=== PATIENT | female | born 1945 | race Caucasian/White ===

== ENCOUNTER 2020-09-27 13:31 | Outpatient (CLI) | payer MEDICARE, SELFPAY ==
--- NOTE | 2020-09-27 13:40 | XR_ITS ---
WS: [id number] KNEE RIGHT TECHNIQUE: 2 views of the right knee CLINICAL INFORMATION: PAIN IN RIGHT KNEE COMPARISON: None. FINDINGS: Advanced degenerative arthritis right knee with medial compartment narrowing and uikg-vh-pgwy articul ation. Hypertrophic changes along the joint line. Advanced narrowing at the patellofemoral articulati on. XR/XR knee RT 1-2V [id number] IMPRESSION: Advanced degenerative narrowing medial joint compartment and patellofemoral art iculation.
--- NOTE | 2020-09-27 13:40 | XR_ITS ---
WS: [id number] KNEE LEFT TECHNIQUE: 2 views of the left knee CLINICAL INFORMATION: PAIN IN LEFT KNEE COMPARISON: None. FINDINGS: Advanced degenerative arthritis left knee with joint space narrowing worse medial joint compartment. [id number]-fv-[id number] articulation with hypertrophic changes along the joint line. Soft tissue edema. Advanced narrowing at the patellofemoral articulation with hypertrophic patella. XR/XR knee LT 1-2V [id number] IMPRESSION: 1. Advanced degenerative arthritis medial joint compartment with [id number] articulation. 2. Advanced degenerative narrowing at the patellofemoral articulation.
== END 2020-09-27 13:32 | disposition home or self-care (01) ==
LOC: RADWPI 13:38
PROVIDERS: PCP Family Medicine; Visit Provider Nurse Practitioner
DX: M17.12 Unilateral primary osteoarthritis, left knee (principal); M25.561 Pain in right knee
CPT/HCPCS: 73560

== ENCOUNTER → 2020-10-20 15:00 | Outpatient (BNVA) | payer MEDICARE, SELFPAY | PROVIDERS: PCP Nurse Practitioner; Referring Provider Nurse Practitioner; Visit Provider Specialist | DX: M17.0 Bilateral primary osteoarthritis of knee (principal); M25.562 Pain in left knee; M25.561 Pain in right knee | CPT/HCPCS: 73560; 73565 ==

== ENCOUNTER 2020-10-26 14:25 | Outpatient (RCR) | payer MEDICARE, SELFPAY | END 2020-11-24 23:59 | disposition home or self-care (01) | LOC: SPT 14:25 | PROVIDERS: PCP Nurse Practitioner; Referring Provider Specialist; Visit Provider Specialist | DX: M25.562 Pain in left knee (principal); M25.561 Pain in right knee | CPT/HCPCS: 97110; 97161 ==

== ENCOUNTER 2020-11-25 06:00 | Outpatient (RCR) | payer MEDICARE, SELFPAY | END 2020-12-09 15:25 | disposition home or self-care (01) | LOC: SPT 06:00 | PROVIDERS: PCP Nurse Practitioner; Referring Provider Specialist; Visit Provider Specialist | DX: M25.562 Pain in left knee (principal); M25.561 Pain in right knee | CPT/HCPCS: 97110 ==

== ENCOUNTER → 2020-12-15 12:42 | Outpatient (BNVA) | payer MEDICARE, SELFPAY | PROVIDERS: PCP Nurse Practitioner; Visit Provider Specialist | DX: Z01.812 Encounter for preprocedural laboratory examination (principal); Z20.822 Contact with and (suspected) exposure to COVID-19 | CPT/HCPCS: 87635 ==

== ENCOUNTER → 2020-12-30 12:35 | Day surgery (SDC) | payer MEDICARE, SELFPAY | PROVIDERS: PCP Nurse Practitioner; Visit Provider Specialist | DX: Z01.818 Encounter for other preprocedural examination (principal) | CPT/HCPCS: 93005 ==

== ENCOUNTER → 2021-01-06 06:36 | Day surgery (SDC) | payer MEDICARE, SELFPAY | PROVIDERS: PCP Nurse Practitioner; Visit Provider Specialist | DX: Z01.818 Encounter for other preprocedural examination (principal); M17.12 Unilateral primary osteoarthritis, left knee | CPT/HCPCS: 87635 ==

== ENCOUNTER 2021-01-11 10:41 | Observation (INO) | payer MEDICARE, SELFPAY ==
[2020-12-30 10:46] VITALS: BMI 38.0
[2020-12-30 11:19] LABS: Add Urine Microscopic? NO; Charge for UA Resulting for Rev
[2020-12-30 11:29] LABS: Eosinophils # 0.1 10^3/uL (0.0-0.8); Hematocrit 40.4 % (37.0-47.0); Hemoglobin 12.8 g/dL (11.5-15.3); Lymphocytes # 0.8 10^3/uL (0.8-4.8); Lymphocytes % 25.3 %; Mean Corpuscular HGB Conc 31.7 g/dL (30.0-36.0); Mean Corpuscular Hemoglobin 29.8 pg (28.0-34.0); Mean Corpuscular Volume 94.2 fL (81-99); Mean Platelet Volume 12.9 fL (7.4-10.4); Monocytes # 0.3 10^3/uL (0.2-0.9); Monocytes % 10.7 %; Neutrophils # 1.83 10^3/uL (1.8-7.7); Nucleated Red Blood Cells % 0 %; Platelet Count 134 10^3/cmm (130-400); Red Blood Count 4.29 10^6/uL (4.1-5.3); Red Cell Distribution Width 13.6 % (12.1-15.1)
[2020-12-30 11:34] LABS: Alanine Aminotransferase 9 U/L (0-33); Alkaline Phosphatase 86 IU/L (35-105); Anion Gap 13.2 (5-19); Aspartate Amino Transferase 21 U/L (0-32); Blood Urea Nitrogen 13 mg/dL (8-23); Calcium 8.9 mg/dL (8.5-10.5); Carbon Dioxide 26 mmol/L (22-29); Chloride 107 mmol/L (98-107); Globulin 2.8 g/dL (1.3-4.6); Glucose 88 mg/dL (65-115); Osmolality Calculated 294 mOsm/kg (285-295); Potassium 4.2 mmol/L (3.5-5.1); Sodium 142 mmol/L (136-145); Total Bilirubin 0.5 mg/dL (0.15-1.2); Total Protein 6.8 g/dL (6.6-8.7)
[2020-12-30 11:39] LABS: Bilirubin Urine Neg (Negative); Blood Urine Neg (Negative); Glucose Urine UA Norm (Normal); Ketones Urine Negative (Negative); Leukocyte Esterase Urine Negative (Negative); Nitrate Urine Negative (Negative); Protein Urine Neg (Negative); Urine Appearance Clear (CLEAR); Urine Color Yellow (Yellow); Urobilinogen Urine Norm (Negative); pH Urine 5 (5-7)
--- NOTE | 2020-12-30 12:35 | ECG_ITS ---
[facility] Test Date: 2020-12-30 Pat Name: Terri Carter Department: Room: Gender: Female Unit Secretary: : 1945 Requested By: Cholo Bill Order Number: [id number] Edith MD: Osman Starks M.D. Measurements Intervals [place] Rate: 69 P: 46 NH: 164 QRS: 15 QRSD: 91 T: 37 QT: 414 QTc: 446 Interpretive Statements SINUS RHYTHM No previous ECG available for comparison Electronically Signed On 12-30-2020 20:52:29 CDT by Osman Starks M.D. [id number]
--- NOTE | 2020-12-30 13:06 | ANES.PREANE2 ---
Pre-Anesthetic Assessment Pre-Anesthetic Assessment: Height/Weight: Height 1.52 m Weight 88.178 kg Proposed Procedure: Operation Date: 01/11/21 11:50 Proposed Procedures p Total Knee Arthroplasty 08495 M17.11(Left) - Gilda Monroe MD Was Beta Tommy taken within 24 hours: N/A Was Clonidine taken within 24 hours: N/A Social: Social History: No alcohol and No tobacco Exam: Pre-Anes Outpt Exam: alert, oriented x 3, clear to auscultation bilaterally and regular rate & rhythm Airway: Submandibular: WNL Cervical ROM: WNL MP: 2 Dentition: False GI: GI: GERD Metabolic: Metabolic: Morbid obesity Musc/skel: Musc/skel: OA/DJD Anesthetic Plan: ASA status: 3 Anesthesia: Regional (specify below) (SAB/adductor canal blk) PFSH Anesthesia PFSH: Social History Smoking and tobacco status: never smoked Alcohol intake: never Data Anesthesia CBC & Chem 7: 12/30/20 11:05 12/30/20 11:05 Other Labs: Laboratory Results - last 48 hr 12/30/20 12/30/20 12/30/20 11:05 11:05 11:10 WBC 3.0 L RBC 4.29 Hgb 12.8 Hct 40.4 MCV 94.2 MCH 29.8 MCHC 31.7 RDW 13.6 Plt Count 134 MPV 12.9 H Neut % (Auto) 61.0 Lymph % (Auto) 25.3 [place] % (Auto) 10.7 Eos % (Auto) 2.0 Baso % (Auto) 1.0 Neut # (Auto) 1.83 Lymph # (Auto) 0.8 [place] # (Auto) 0.3 Eos # (Auto) 0.1 Baso # (Auto) 0.0 Nucleated RBC % (auto) 0 Nucleated RBCs # 0.0 Sodium 142 Potassium 4.2 Chloride 107 Carbon Dioxide 26 Anion Gap 13.2 BUN 13 Creatinine 0.6 GFR Calculation Not Reportable Glucose 88 Calculated Osmolality 294 Calcium 8.9 Total Bilirubin 0.5 AST 21 ALT 9 Alkaline Phosphatase 86 Total Protein 6.8 Albumin 4.0 Globulin 2.8 Urine Color Yellow Urine Appearance Clear Urine pH 5 Ur Specific [place] 1.020 Urine Protein Neg Urine Glucose (UA) Norm Urine Ketones Negative Urine Blood Neg Urine Nitrate Negative Urine Bilirubin Neg Urine Urobilinogen Norm Ur Leukocyte Esterase Negative Cardiac Studies: No Data to Display
[2021-01-11] VITALS (19 sets, daily range): BP systolic 119–178; BP diastolic 71–100; PULSE 60–92; RESP 14–18; TEMP 36–37.1; O2SAT 90–97
--- NOTE | 2021-01-11 07:41 | P.ANESUD_ITS ---
Pre-Anesthetic Update Pre-Anesthetic Assessment: Date of Surgery/Procedure: 01/11/21 Preop Allyson gnosis: Left knee DJD Proposed Procedure: Operation Date: 01/11/21 08:30 Proposed Procedures p Total Knee Arthroplasty 93239 M17.11(Left) - Gilda Monroe MD Any changes to Pre-Anesthetic Assessment?: No Last Intake: L>8h Last Intake: 00:00 Vitals: Temperature 98.8 F 01/11/21 07:24 Temperature Source Temporal Artery S can 01/11/21 07:24 Pulse Rate 90 01/11/21 07:24 Pulse Rhythm 01/11/21 07:28 Pulse Strength 3+ Normal 01/11/21 07:28 Respiratory Rate 18 01/11/21 07:24 Blood Pressure 178/76 01/11/21 07:24 Blood Pressure Argelia n 110 01/11/21 07:24 Pulse Oximetry 97 01/11/21 07:24 Oxygen Delivery Me thod 01/11/21 07:28 Exam: Pre-Anes Outpt Exam: alert, oriented x 3, clear to auscultation bilaterally and regular rate & rhythm Cardiac Studies: No Data to Display
--- NOTE | 2021-01-11 07:44 | P.HPUD_ITS ---
Surgery/Procedure H&P Update DATE OF PROCEDURE: January 11, 2021 DATE H&P PERFORMED: 12/13/20 H&P UPDATE INFORMATION: I have reviewed H&P completed within last 30 days, I have examined patient prior to procedure, No changes to prior documentation and H&P is in [facility] EMR on date indicated CHANGES TO PREVIOUS DOCUMENTATION: New med - Cetirizine for allergies PREOP DIAGNOSIS: Left knee DJD PLANNED PROCEDURE: Operation Date: 01/11/21 08:30 Proposed Procedures p Total Knee Arthroplasty 96279 M17.11(Left) - Gilda Monroe MD Related Problem List Diagnoses (1) Osteoarthritis of left knee: Qualifiers: Osteoarthritis type: primary Qualified Code(s): M17.12 - Unilateral primary osteoarthritis, left knee
[2021-01-11] MEDS: sodium chloride 0.9% 1,000 ML 30 ML IV (08:00)
[2021-01-11] MEDS: CELEcoxib 200 mg Capsule 400 MG PO (08:01)
[2021-01-11] MEDS: acetaminophen 1,000 MG/100 ML PIGGYBACK 400 MG IV ×3 (08:03→23:47)
--- NOTE | 2021-01-11 08:44 | ANES.PROC ---
Anesthesia Procedures Procedure/Date: 01/11/21 Nerve Block ^: Nerve Block 1: Main Anesthesia: spinal anesthesia block Time Out Performed: Yes Consent: requested by attending/covering physician, risks and benefits reviewed and patient agrees to proceed Nerve block location: adductor canal (Under continuous Ultrasound Guidance ) Anesthesia monitors applied: pulse oximetry, EKG, BP cuff and oxygen Nerve block position: supine Anesthetic Used: ropivicaine 0.5% Amount of anesthesia used (mL): 20 Ultrasound used to: recognize landmarks and visualize and ID femerol nerve Nerve Stimulator Used?: No Interscalene/Femoral BLK: 4 stimuplex 21 g needle used for position and inplane approach Injection: neg aspiration of heme Patient Tolerated Procedure: well and no complications Complications: none
[2021-01-11] MEDS: ceFAZolin 1,000 mg SDV 1000 MG IRRIGATION ×2 (09:20)
[2021-01-11] MEDS: vancomycin 1,000 MG SDV 1000 MG XX (10:11)
--- NOTE | 2021-01-11 11:07 | SUR.PHASEI ---
1104 PATIENT TO PACU FROM OR. RR EVEN AND UNLABORED, TALKING WHEN ENTERING PACU. DRESSING TO LEFT KNEE, CDI.
--- NOTE | 2021-01-11 11:13 | XRR_ITS ---
PROCEDURE INFORMATION: Exam: XR Left Knee Exam date and time: 01/11/2021 11:34 AM Age: 75 years old Clinical indication: Device placement; Joint replacement hardware; Prior surgery; Surgery date: Post-operative (0-2 days); Additional info: Status post left total knee arthroplasty TECHNIQUE: Imaging protocol: XR Left knee. Views: 3 views. COMPARISON: CR XR knees AP WB w BI lmt ORTH 10/20/2020 3:07 PM FINDINGS: Bones/joints: Interval left total knee arthroplasty. No periprosthetic lucency. No fracture. No dislocation. Soft tissues: Postoperative soft tissue changes present. XR/XR knee LT 3V* [id number] IMPRESSION: Postoperative changes.
--- NOTE | 2021-01-11 11:16 | P.OP_ITS ---
Operative Report Date of procedure: January 11, 2021 Pre-op Diagnosis: Primary osteoarthritis left knee with flexion contracture Post-op diagnosis: same Post-op Findings: Multiple osteophytes, flexion significant osteoarthritic change. Procedure Done: Left total knee arthroplasty Implants: The Ai total knee system with a size 4 triathlon beaded posterior stabilized femur left, a triathlon titanium tibial component size 3 beaded, a triathlon X3 posterior stabilized tibial bearing insert size 3 X 9 mm and a beaded triathlon titanium asymmetric patella size 32 x 10 mm Specimens removed/disposition: Bone, disposed of Pathology: none sent Surgeon: Gilda Monroe [employer] Research Analyst: [facility] operating room technicians Anesthesia: MAC (With spinal anesthetic) Estimated blood loss (mL): 20 Tourniquet time (min): 96 Tourniquet time: At 250 mmHg IV fluids (mL): 1,000 Urine output (mL): 200 Complications: None Findings: Severe degenerative osteoarthritis with large osteophytes, flexion contracture, and near complete obliteration of cartilage. Condition: stable Disposition: PACU Brief History: This 75-year-old woman presented to the office with severe left knee pain which was incapacitating. She was unable to ambulate or perform reasonable activities of daily living. She had significant concerns of the knee giving way. None of these activities were able to be accomplished comfortably. She was unresponsive to conservative measures and wished to proceed with left total knee arthroplasty risks and complications were discussed. Consents were signed preoperatively, and questions were answered. The patient wished to proceed. Procedure: The patient was brought to the operating theater, and after undergoing adequate spinal anesthetic with MAC, ASA 3, the left lower extremity was prepped with Dura-Prep and draped in usual fashion following placement of a tourniquet high on the leg. The leg was then draped free. Following prepping and draping, the leg was exsanguinated, and the tourniquet was elevated to 250 mmHg for a total tourniquet time of 96 minutes. Prior to elevation of the tourniquet, but following exposure of the site of surgery, a surgical pause was performed. At the time of the surgical pause, we confirmed the site and side of surgery. Additionally, we confirmed the appropriate and timely administration of preoperative antibiotics, Ancef 2 g. and Transexemic acid 1 g. The availability of equipment was confirmed, and the patient's identity was verbalized as well. Following the surgical pause, an incision was made centering over the patella continuing proximally and distally as necessary to allow access to the knee joint. Dissection continued through skin and soft tissues using a scalpel. Hemostasis was obtained using electrocautery. The skin incision was followed by a median parapatellar arthrotomy. The leg was extended and the patella was everted. Following this, the leg was returned to flexed position. The distal femur was exposed and a drill hole was made in this for placement of the distal femoral jig. The distal femoral jig was set at 5? of valgus. The distal femoral cutting block was then placed in appropriate position, and an jessie wing was used to confirm an appropriate amount of distal femur would be resected. The distal femoral resection was accomplished with 10 mm of bone being resected distally secondary to the preoperative flexion contracture. After the distal femoral resection had been accomplished, the femur was measured and it measured a size 4. Medial lateral dimension also measured a size 4. A size 4 femoral cutting block was placed in position, and we were then able to accomplish the anterior, posterior and chamfer cuts. This jig was then removed and the notch guide was placed in position. With the notch guide in appropriate position, the notch was excised including resection of the anterior and posterior cruciate ligaments. This notch was to allow for the posterior stabilized femoral component. At this point, the femur was prepared and attention was directed to the proximal tibia. The posterior knee retractor was placed along with medial and lateral retractors. Further resection of the menisci was accomplished as we had better visualization. A complete meniscectomy was performed both medially and laterally with care being taken to protect the popliteus. Retractors were then placed so that the proximal tibia was well visualized. A drill hole was then made in the tibia for placement of the intramedullary guide. This guide was placed so that approximately 2 mm of bone would be resected from the deficient medial tibial plateau. The intramedullary guide was utilized supplemented with an extramedullary guide to assure appropriate alignment for the proximal tibial resection. The proximal tibial jig was then evaluated, pinned in position, and the proximal tibial resection was accomplished without difficulty. The jig was removed, and the proximal tibia was measured. It measured a size 3. A medial release was accomplished. Osteophytes were also removed from the tibia posteriorly and medially. Additionally, posterior femoral condyle osteophytes were removed as well. Trial was accomplished with a size 3 x 9 mm insert. The femoral component was placed in position for the trial reduction, and the knee was placed through range of motion. With this, there was excellent stability with excellent varus-valgus alignment with appropriate patellar tracking. Extension was noted to be full as well. This was felt to be the appropriate size insert. There was full extension and flexion without lift off and the rotation of the tibia was marked. Alignment was checked from the hip to the ankle, and this was noted to be appropriate as well. Attention was then directed to the patella. The patella was measured with a caliper. We resected sufficient patella to leave approximately 14 mm of patella remaining. Measurements of the patella then indicated that a size asymmetric 32 mm x 10 mm was the appropriate patellar size. We then placed the jig to drill for the 3 pegs of the press-fit patella, and these drill holes were made without incident. A trial patella was then placed, and the knee was placed through range of motion. The patella was noted to track nicely without evidence of subluxation. The femur was prepared for a press-fit femur by drilling 2 holes for the femoral pegs. All trial components were subsequently removed. The tibial tray was then pinned into position, and we broached the tibia for the stem of the tibial component. Subsequently, 4 drill holes were made for placement of the press-fit tibia. This was accomplished without difficulty. Care was taken to assure appropriate rotation of the tibia as well as appropriate position on the proximal tibia. The tibial tray was completely seated on the proximal tibia. Following broaching, the tibial guide was removed, and all surfaces were copiously irrigated. The surfaces were then dried and a bone plug was placed into the distal femur. Exparel was also injected at this point. The Tritanium tibia was impacted into position. The beaded femur was then impacted into position in a cementless fashion. The tibial insert was placed. The patella was pressed into position with a patellar clamp. The knee was irrigated with 500 mL of normal saline. The knee was then copiously irrigated and suctioned dry. Attention was then directed to closure. Closure was accomplished with 0 Vicryl in the fascial tissues. Following this, a 2-0 Monocryl was used in the subcutaneous tissues, and the skin was closed with skin ute. A sterile dressing was then placed consisting of Dermabond Prineo, telfa, 4x4's, ABD, sterile soft roll, and an Carroll wrap. The patient was returned the Recovery Room in a satisfactory condition. X-rays were obtained there. The patient will be discharged to the floor for postoperative rehabilitation and pain management. Associated Problem List Diagnoses (1) Osteoarthritis of left knee: Qualifiers: Osteoarthritis type: primary Qualified Code(s): M17.12 - Unilateral primary osteoarthritis, left knee
--- NOTE | 2021-01-11 11:56 | SUR.PHASEI ---
1132 PATIENT TO MED SURG. DRESSING TO LEFT KNEE, CDI WITH FIRST ICE IN PLACE. WALL CATH DRAINING CLEAR, YELLOW URINE. PATIENT STABLE FOR TRANSPORT.
[2021-01-11] MEDS: chlorhexidine gluconate 0.12% Btl 473 mL 30 ML MUCOUS MEM ×3 (12:08→20:59)
[2021-01-11] MEDS: oxyCODONE 5 mg IR Tab/Cap PO ×2 (12:08→18:16)
--- NOTE | 2021-01-11 14:51 | ANE.PACU2 ---
Inpatient post-anesthesia follow up: Airway intact: Yes Vital signs: Temperature 97.0 F Pulse Rate 60 Respiratory Rate 17 Blood Pressure 129/75 Pulse Oximetry 90 Oxygen Delivery Me thod Room Air Oxygen Flow Rate Fraction of Inspir ed Oxygen Hydration adequate: Yes Nausea and vomiting: No Pain level: 1 Mental status: Baseline
[2021-01-11] MEDS: mupirocin oint 22 gm 1 APPLIC NASAL (17:20)
[2021-01-11] MEDS: calcium carbonate 500 mg Chew Tablet 1000 MG PO (17:20)
[2021-01-11] MEDS: venlafaxine 75 mg Tablet 37.5 MG PO (17:20)
[2021-01-11] MEDS: sennosides-docusate Tablet 2 TAB PO (17:21)
[2021-01-11] MEDS: iron polysaccharide complex 150 mg Capsule PO (17:21)
[2021-01-11] MEDS: CELEcoxib 200 mg Capsule PO (20:58)
[2021-01-12] VITALS (7 sets, daily range): BP systolic 114–135; BP diastolic 63–73; PULSE 75–118; RESP 16–20; TEMP 36.6–37.2; O2SAT 93–94
[2021-01-12] MEDS: oxyCODONE 5 mg IR Tab/Cap PO ×2 (04:23→12:26)
[2021-01-12 06:06] LABS: Basophils % 0.2 %; Eosinophils % 0.2 %; Hematocrit 34.2 % (37.0-47.0); Hemoglobin 10.9 g/dL (11.5-15.3); Lymphocytes # 0.7 10^3/uL (0.8-4.8); Lymphocytes % 11.8 %; Mean Corpuscular HGB Conc 31.9 g/dL (30.0-36.0); Mean Corpuscular Hemoglobin 29.7 pg (28.0-34.0); Mean Corpuscular Volume 93.2 fL (81-99); Mean Platelet Volume 13.7 fL (7.4-10.4); Monocytes # 0.6 10^3/uL (0.2-0.9); Monocytes % 11.4 %; Neutrophils # 4.21 10^3/uL (1.8-7.7); Neutrophils % 76.2 %; Nucleated Red Blood Cells % 0 %; Platelet Count 91 10^3/cmm (130-400); Red Blood Count 3.67 10^6/uL (4.1-5.3); Red Cell Distribution Width 13.2 % (12.1-15.1); White Blood Count 5.5 10^3/uL (4.0-10.0)
[2021-01-12 06:35] LABS: Anion Gap 10.9 (5-19); Blood Urea Nitrogen 17 mg/dL (8-23); Calcium 8.1 mg/dL (8.5-10.5); Carbon Dioxide 26 mmol/L (22-29); Chloride 107 mmol/L (98-107); Glucose 122 mg/dL (65-115); Osmolality Calculated 293 mOsm/kg (285-295); Potassium 3.9 mmol/L (3.5-5.1); Sodium 140 mmol/L (136-145)
[2021-01-12] MEDS: acetaminophen 1,000 MG/100 ML PIGGYBACK 400 MG IV (07:30)
[2021-01-12] MEDS: mupirocin oint 22 gm 1 APPLIC NASAL ×2 (08:58→17:15)
[2021-01-12] MEDS: sennosides-docusate Tablet 2 TAB PO ×2 (08:59→17:16)
[2021-01-12] MEDS: atorvastatin 40 mg Tablet 20 MG PO (08:59)
[2021-01-12] MEDS: pantoprazole DR 40 mg Tablet PO (08:59)
[2021-01-12] MEDS: multivitamin therapeutic Tablet 1 TAB PO (08:59)
[2021-01-12] MEDS: CELEcoxib 200 mg Capsule PO ×2 (08:59→19:37)
[2021-01-12] MEDS: cholecalciferol (vitamin D3) 1,000 unit Tablet 1000 UNIT PO (08:59)
[2021-01-12] MEDS: calcium carbonate 500 mg Chew Tablet 1000 MG PO ×2 (08:59→17:15)
[2021-01-12] MEDS: iron polysaccharide complex 150 mg Capsule PO ×2 (09:00→17:16)
[2021-01-12] MEDS: aspirin 325 mg EC Tablet PO (09:00)
[2021-01-12] MEDS: venlafaxine 75 mg Tablet 37.5 MG PO ×2 (09:01→17:20)
[2021-01-12] MEDS: chlorhexidine gluconate 0.12% Btl 473 mL 30 ML MUCOUS MEM ×4 (09:01→20:40)
--- NOTE | 2021-01-12 11:02 | PC.CHAP ---
Pastoral Care Encounter/Spiritual Assessment Type of Contact [] Declined chute boss visit [] Patient/Family/Request visit [] Outpatient visit [] Follow-up visit [] Physician referral [] Code/Alert [X] Routine visit [] Staff referral [] Actively dying [] Patient sleeping [] Family support [] [] Out of room [] Palliative care [] [] Receiving care in room [] Pre-surgical visit [] Trauma [] Long length of stay [] ICU visit [] Other: Relational/Emotional Strength [X] Patient feels connected with others/family/visitors/staff [] Distress [] Loneliness/isolation [] Abandonment Spirituality of Patient [X] Person of [place] [X] Attends Moravian of their [place] [] Believes in Prayer [] Reads Bible or Denominational materials [] There are Spiritual issues to be addressed Automotive Sales Executive Interventions [X] Prayer [X] Active listening [] Non-anxious presence [] Spiritual/emotional support [] Crisis/trauma care [] Spiritual counseling [] Bereavement support [] Provided bereavement packet [] Provided Bible/devotional materials [] Provided toy/stuffed animal, coloring book to patient or family member [] Provided Communion [] Anointing/[place] [] Salvation [X] Completed spiritual assessment [] Other: Impact on Illness or Injury [] Angry [] Fearful [] Anxious [] Often cries [] Exhaustion [] Unable to work [] Unable to attend zoroastrian [] Unable to walk/stand [] Unable to read [] Unable to drive [] Unable to eat/drink [] Unable to sleep [] Unable to be with family [] Patient intubated [] Other: Summary Time spent with patient 10 MIN
--- NOTE | 2021-01-12 16:40 | P.PN_ITS ---
Subjective Subjective: Interval history: The patient is seen in her room. She had episodes of orthostatic hypotension when attempting physical therapy this morning. Notes are reviewed, and both OT and PT feel that she would benefit from a short stay at a rehab facility. The patient is also very anxious and feels unsafe to go home. She does live alone. A peer to peer was done today with the insurance company, and it has been agreed that she would benefit from a short stay at rehabilitation. Her stay will be reviewed by them as appropriate. The patient is comforted by this, and we are still hoping that she may perhaps be able to be transferred today. Medications: Reviewed: Yes Vitals/I&O/Wt Last Vital Signs Temp 97.8 F 01/12/21 11:56 Pulse 118 H 01/12/21 11:56 Resp 18 01/12/21 12:26 BP 114/73 01/12/21 11:56 Pulse Ox 93 01/12/21 11:56 01/12/21 01/12/21 01/12/21 06:59 14:59 22:59 Intake Total 150 / 1740 450 / 450 Output Total 300 / 1070 Balance -150 / 670 450 / 450 Physical Exam Const: COMMON NORMALS: no acute distress, patient oriented x3 and alert EX AM LIMITATIONS: physical limitations (Endurance is limited.) GENERAL APPE ARANCE: cooperative and comfortable NUTRITIONAL APPEARANCE: obese ORIENTATION/CONSCIOUSNESS: Yes awake and Yes oriented to person HENMT: COMMON NORMALS: normocephalic and atraumatic HEAD & SCALP: normoceph alic and atraumatic Eye: GENERAL EYE: appearance normal, both eyes and all related structures Chest: COMMONS NORMALS: normal inspection of the chest Resp: COMMON NORMALS: normal respiratory effort EFFORT & INSPECTION: Yes able to speak in complete sentences and Yes symmetric chest movement Extremity: LEFT LOWER EXTREMITY: Yes knee joint (Dressing is removed, wound is benign.) Left knee: Yes inspection (There is minimal swelling.), Yes palpation (Minimal tenderness to palpation.) and Yes neurovascular exam (Intact distally.) Neuro: COMMON NORMALS: patient oriented x3 SENSORIUM/ORIENTATION: Yes alert and Yes oriented to person Psych: COMMON NORMALS: mental status grossly normal APPEARANCE: Yes grossly normal ATTITUDE: Yes calm and Yes engaged ATTENTION/CONCENTRATION: Yes attention grossly intact Skin: COMMON NORMALS: no rashes or lesions noted GENERAL SKIN EXAM: no rashes or lesions noted Urinary Catheter Management^: Messer: Cath Placed During This Visit: yes, but has since been removed by the nurse Reason for Continuing Indwelling Catheter: Decision to DC Catheter Urinary Catheter Date of Insertion: 01/11/21 Urinary Catheter Time of Insertion: 08:40 Date Urinary Catheter Removed: 01/12/21 Time Urinary Catheter Discontinued: 06:32 Data : 01/12/21 05:20 01/12/21 05:20 A&P Assessment and plan (1) History of total knee arthroplasty: Patient is in her first postoperative day following total knee arthroplasty which was performed yesterday. Patient had orthostatic hypotension this morning when physical therapy attempted to work with her. She did better this afternoon, but she is still requiring verbal cues and assistance with her ambulation and activities. Her dressings were removed. Her wound is benign. There is no evidence of infection. She is alert and awake and in good spirits. She does not feel safe to be discharged to home, and physical therapy and Occupational Therapy both agree that she is not safe for discharge to home. We have worked with her insurance company to get approval to have her go to custodial, and we will plan for this. Status: Acute Qualifiers: Laterality: left Qualified Code(s): Z96.652 - Presence of left artificial knee joint (2) Osteoarthritis of left knee: Status: Acute Qualifiers: Osteoarthritis type: primary Qualified Code(s): M17.12 - Unilateral primary osteoarthritis, left knee Attestations Medical Necessity Statement*: Patient requires ongoing hospitalization while awaiting custodial as she is not safe for discharge to home. This has been approved, and we are waiting transfer to custodial. Coding Level of Care Code Acute Maintenance And Repair Worker for Dominique Alvarado Diagnoses History of total knee arthroplasty Z96.652 Laterality: left Osteoarthritis of left knee M17.12 Osteoarthritis type: primary
[2021-01-12] MEDS: acetaminophen 500 mg Tablet 1000 MG PO ×2 (17:16→23:51)
[2021-01-13] VITALS (8 sets, daily range): BP systolic 107–122; BP diastolic 59–72; PULSE 78–95; RESP 16–20; TEMP 36.6–37.2; O2SAT 90–95
[2021-01-13] MEDS: oxyCODONE 5 mg IR Tab/Cap PO ×3 (04:37→13:42)
[2021-01-13] MEDS: venlafaxine 75 mg Tablet 37.5 MG PO (09:25)
[2021-01-13] MEDS: acetaminophen 500 mg Tablet 1000 MG PO (09:26)
[2021-01-13] MEDS: calcium carbonate 500 mg Chew Tablet 1000 MG PO (09:26)
[2021-01-13] MEDS: cholecalciferol (vitamin D3) 1,000 unit Tablet 1000 UNIT PO (09:26)
[2021-01-13] MEDS: sennosides-docusate Tablet 2 TAB PO (09:26)
[2021-01-13] MEDS: multivitamin therapeutic Tablet 1 TAB PO (09:27)
[2021-01-13] MEDS: pantoprazole DR 40 mg Tablet PO (09:27)
[2021-01-13] MEDS: CELEcoxib 200 mg Capsule PO (09:27)
[2021-01-13] MEDS: atorvastatin 40 mg Tablet 20 MG PO (09:27)
[2021-01-13] MEDS: aspirin 325 mg EC Tablet PO (09:27)
[2021-01-13] MEDS: iron polysaccharide complex 150 mg Capsule PO (09:28)
[2021-01-13] MEDS: mupirocin oint 22 gm 1 APPLIC NASAL (09:35)
[2021-01-13] MEDS: chlorhexidine gluconate 0.12% Btl 473 mL 30 ML MUCOUS MEM ×2 (09:36→13:46)
--- NOTE | 2021-01-13 10:22 | P.DS_ITS ---
Discharge Providers Date of Admission: 01/11/21 10:41 Date of Discharge: January 13, 2021 Attending Provider at Admission: Gilda Monroe MD Attending Provider at Discharge: Gilda Monroe MD Primary Care Provider: Lily Townsend APN Diagnoses at Discharge Discharge Diagnosis (1) History of total knee arthroplasty: Status: Acute Qualifiers: Laterality: left Qualified Code(s): Z96.652 - Presence of left artificial knee joint (2) Osteoarthritis of left knee: Status: Acute Permanent problem details: Left total knee arthroplasty. Implants: The [place] total knee system with a size 4 triathlon beaded posterior stabilized femur left, a triathlon titanium tibial component size 3 beaded, a triathlon X3 posterior stabilized tibial bearing insert size 3 X 9 mm and a beaded triathlon titanium asymmetric patella size 32 x 10 mm Qualifiers: Osteoarthritis type: primary Qualified Code(s): M17.12 - Unilateral primary osteoarthritis, left knee Reason for Visit Reason for Visit: Primary osteoarthritis left knee Hospital Course Hospital Course Patient presented to the hospital on January 11, 2021 for left total knee arthroplasty. She had significant degenerative osteoarthritis and underwent an uneventful left total knee arthroplasty. On the first postoperative day yesterday, she had hypotension and her first physical therapy treatment session. The second afternoon session was better, however, the patient was noted to need significant assistance with her normal activities of daily living. After evaluation with OT and PT, it was felt that group home would be a better option for her and that she was likely unsafe to be discharged to home. She does live alone. The patient therefore remained another night in the hospital. We did obtain approval through [id number] evaluation from her insurance company for her transfer to group home. She is therefore, on the second postoperative day, ready for transfer to group home. She does note that once she is ready for discharge from group home, she will have the assistance of her grandchildren potentially. She does note that she still has decreased endurance and lack of competence, and she is in agreement to proceeding with discharge to group home. Her wound is benign. There is no drainage. Her calf is soft and nontender. She is neurologically intact. Physical Exam Const: COMMON NORMALS: no acute distress, patient oriented x3 and alert EXAM LIMITATIONS: physical limitations (Endurance is limited.) GENERAL APPEARANCE: cooperative and comfortable NUTRITIONAL APPEARANCE: obese ORIENTATION/CONSCIOUSNESS: Yes awake and Yes oriented to person HENMT: COMMON NORMALS: normocephalic and atraumatic HEAD & SCALP: normocephalic and atraumatic Eye: GENERAL EYE: appearance normal, both eyes and all related structures Chest: COMMONS NORMALS: normal inspection of the chest Resp: COMMON NORMALS: normal respiratory effort EFFORT & INSPECTION: Yes able to speak in complete sentences and Yes symmetric chest movement Extremity: LEFT LOWER EXTREMITY: Yes knee joint (Minimal to no swelling.) Left knee: Yes inspection (No drainage or ecchymosis.), Yes palpation (No tenderness over the calf.) and Yes neurovascular exam (Intact distally.) Neuro: COMMON NORMALS: patient oriented x3 SENSORIUM/ORIENTATION: Yes alert and Yes oriented to person Psych: COMMON NORMALS: mental status grossly normal APPEARANCE: Yes grossly normal ATTITUDE: Yes calm and Yes engaged ATTENTION/CONCENTRATION: Yes attention grossly intact Skin: COMMON NORMALS: no rashes or lesions noted GENERAL SKIN EXAM: no rashes or lesions noted Urinary Catheter Management^: Messer: Cath Placed During This Visit: yes, but has since been removed by the nurse Reason for Continuing Indwelling Catheter: Decision to DC Catheter Urinary Catheter Date of Insertion: 01/11/21 Urinary Catheter Time of Insertion: 08:40 Date Urinary Catheter Removed: 01/12/21 Time Urinary Catheter Discontinued: 06:32 Discharge Data Data Completed and Pending: Completed Studies During Hospitalization Category Date Time Status XR knee LT 3V* [id number] Urgent Exams 01/11/21 11:13 Completed Vitals: Last Vital Signs Temp 98.6 F 01/13/21 08:00 Pulse 95 01/13/21 08:00 Resp 18 01/13/21 09:33 BP 121/69 01/13/21 08:00 Pulse Ox 90 01/13/21 08:00 Discharge Plan Discharge Patient Disposition: Home Health Service Condition: Stable Prescriptions: New celecoxib 200 mg Capsule 200 mg PO DAILY Qty: 30 RF: 0 aspirin 325 mg Tablet,Delayed Release (Dr/Ec) 325 mg PO DAILY Qty: 0 RF: 0 oxycodone 5 mg Tablet 5 mg PO Q4H PRN (Reason: Moderate Pain) Qty: 30 RF: 0 Continued omeprazole 20 mg capsule,delayed release(DR/EC) 20 mg PO DAILY RF: 0 venlafaxine 37.5 mg tablet 37.5 mg PO BID RF: 0 atorvastatin 10 mg tablet 10 mg PO DAILY RF: 0 cetirizine 10 mg tablet 10 mg PO PRN PRN (Reason: Allergy Symptoms) RF: 0 Discharge Orders: Discharge Order (Routine); Ordered 01/12/21 Ordered By: Gilda Monroe Other Ambulatory Orders: DME: Walker (Order) Location: None Selected Ordered By: Gilda Monroe Referrals: Gilda Monroe MD [Physician] - 01/26/21 11:45 am Discharge Diet: Advance as tolerated and Usual diet Discharge Activity: Increase activity as tolerated, Limit activity as instructed, Use walker/crutches as instructed and As per PT/OT instructions Patient Instructions: Aspirin (By mouth), Oxycodone, Rapid Release (By mouth), Celecoxib (By mouth), Total Knee Replacement (DC), Osteoarthritis (DC), Opioid Safety Activity Restrictions/Additional Instructions: Weightbearing as tolerated. Range of motion, weightbearing, and gait training per physical therapy. Discharge Attestations Time Spent in Discharge Care*: greater than 30 min Specific Discharge Activities: educating patient, discussing with pcp/other providers, discussing with case operator/social workers/dc planners, documenting/other paperwork and evaluating patient/reviewing data Other discharge activites (optional): Peer to peer Quality Metrics Clinical Quality Measures During this hospital stay, did patient experience: None Coding Level of Care Code Acute Chg FW DC note Exam Comprehensive Diagnoses History of total knee arthroplasty Z96.652 Laterality: left Osteoarthritis of left knee M17.12 Osteoarthritis type: primary
[2021-01-13 13:36] LABS: SARS Covid-2 Antigen Negative (Negative)
--- NOTE | 2021-01-13 14:14 | PC.NURSE ---
Report I called report to [facility] to Huma Schmidt LPN.
== END 2021-01-13 14:47 | disposition home health service (06) ==
LOC: MEDSURG 10:41
PROVIDERS: Admitting Provider Specialist; PCP Nurse Practitioner; Visit Provider Specialist
PROC: (CPT 27447; principal; 2021-01-11 08:10)
DX: M17.12 Unilateral primary osteoarthritis, left knee (principal); K21.9 Gastro-esophageal reflux disease without esophagitis; E66.01 Morbid (severe) obesity due to excess calories; Z68.38 Body mass index [BMI] 38.0-38.9, adult
CPT/HCPCS: 27447; 36415; 51702; 73562; 80048; 80053; 81003; 85025; 87426; 96365; 97110; 97116; 97162; 97166; 97530; 97535; C1776; C9290; G0378; J0690; J2250; J2370; J2405; J2704; J2795; J3010; J3370; J3490; J7030

== ENCOUNTER → 2021-01-26 12:10 | Outpatient (BNVA) | payer MEDICARE, SELFPAY | PROVIDERS: PCP Nurse Practitioner; Visit Provider Specialist | DX: M17.11 Unilateral primary osteoarthritis, right knee (principal); M25.462 Effusion, left knee; M25.562 Pain in left knee; M25.561 Pain in right knee | CPT/HCPCS: 73560; 73565 ==

== ENCOUNTER → 2021-02-09 15:26 | Outpatient (BNVA) | payer MEDICARE, SELFPAY | PROVIDERS: PCP Nurse Practitioner; Visit Provider Specialist | DX: M25.562 Pain in left knee (principal); M25.561 Pain in right knee; M17.12 Unilateral primary osteoarthritis, left knee; Z96.652 Presence of left artificial knee joint | CPT/HCPCS: 73560; 73565 ==

== ENCOUNTER → 2021-05-11 13:25 | Outpatient (BNVA) | payer MEDICARE, SELFPAY | PROVIDERS: PCP Nurse Practitioner; Visit Provider Specialist | DX: M25.562 Pain in left knee (principal); Z96.652 Presence of left artificial knee joint | CPT/HCPCS: 73560; 73565 ==

== ENCOUNTER 2021-07-05 12:22 | Outpatient (CLI) | payer MEDICARE, SELFPAY ==
--- NOTE | 2021-07-05 12:28 | MM_ITS ---
WS: [id number] SCREENING DIGITAL MAMMOGRAM WITH CAD HISTORY: SCREENING COMPARISON: None available. Bilateral CC and MLO views submitted. Computer aided detection analyzed. Breast composition: There are scattered areas of fibroglandular density. Ovoid 5 mm nodule in the ant erior LEFT breast needs further evaluation. Asymmetry in the anterior upper outer RIGHT breast is faisal ign in appearance. MM/[place] [id number] IMPRESSION: BI-RADS: 0-Incomplete: Need additional imaging evaluation FOLLOW UP: Need Additional Imaging LEFT breast: Spot compression views (CC and MLO). True ML. Ultrasound to follow if abnormality persists.
== END 2021-07-05 12:23 | disposition home or self-care (01) ==
PROVIDERS: PCP Nurse Practitioner; Visit Provider Nurse Practitioner
DX: Z12.31 Encounter for screening mammogram for malignant neoplasm of breast (principal)
CPT/HCPCS: 77067

== ENCOUNTER 2021-07-29 07:43 | Outpatient (CLI) | payer MEDICARE, SELFPAY ==
--- NOTE | 2021-07-29 07:49 | US_ITS ---
WS: [id number] Left breast ultrasound, 07/29/2021 Clinical Data: LT BREAST NODULE Comparison: Mammogram, 07/29/2021 Findings: There is a simple cyst 1 cm from the nipple in the 12:00 position measuring 0.28 x 0.36 x 0.38 cm. Th ere is a second cyst 2 cm from the nipple in the 12:00 position measuring 0.37 x 0.49 x 0.58 cm. This cyst does have a small septum but no internal echoes and a well-defined border. US/US breast LT limited* [id number] Impression: 1. 2 cysts at the 12:00 position 1 to 2 cm from nipple. 2. Recommend return to annual screening mammograms. BIRADS: 2-Benign FOLLOW UP: 1 Year Follow-up
--- NOTE | 2021-07-29 07:49 | MM_ITS ---
WS: [id number] Left breast diagnostic digital mammogram, 07/29/2021 Clinical Data: OTHER ABNORMAL/INCONCLUSIVE FINDING ON DIAG IMAGING OF BREAS Comparison: 07/05/2021 Findings: Compression views in the CC and MLO projection along with a medial lateral view of the left breast sh ow the ovoid density has benign characteristics. The border is well-defined. There are no spiculation s. No calcifications are seen. MM/[place] [id number] Impression: 1. Benign 0.5 cm nodule in the central portion of the left breast 3 cm posterio r to the areola. 2. Left breast ultrasound will be performed BIRADS: 2-Benign FOLLOW UP: See Report The CAD radio program checker was used.
== END 2021-07-29 07:44 | disposition home or self-care (01) ==
PROVIDERS: PCP Nurse Practitioner; Visit Provider Nurse Practitioner
DX: R92.8 Other abnormal and inconclusive findings on diagnostic imaging of breast (principal)
CPT/HCPCS: 76642; 77065

== ENCOUNTER → 2021-11-21 14:04 | Outpatient (BNVA) | payer MEDICARE, SELFPAY | PROVIDERS: PCP Nurse Practitioner; Visit Provider Specialist | DX: Z96.652 Presence of left artificial knee joint (principal) | CPT/HCPCS: 73560; 73565 ==

== ENCOUNTER → 2021-12-21 07:57 | Outpatient (BNVA) | payer MEDICARE, SELFPAY | PROVIDERS: PCP Nurse Practitioner; Visit Provider Specialist | DX: M17.11 Unilateral primary osteoarthritis, right knee (principal) | CPT/HCPCS: 73560; 73565; 99214 ==

== ENCOUNTER → 2022-01-03 09:11 | Day surgery (SDC) | payer MEDICARE, SELFPAY | PROVIDERS: PCP Nurse Practitioner; Visit Provider Specialist | DX: Z01.818 Encounter for other preprocedural examination (principal) | CPT/HCPCS: 93005 ==

== ENCOUNTER 2022-01-09 12:42 | Emergency (ER) | payer MEDICARE, SELFPAY ==
[2022-01-09 12:53] VITALS: BP 166/66; PULSE 75; RESP 20; TEMP 37; O2SAT 97; BMI 38.5
[2022-01-09 14:20] LABS: Add Urine Microscopic? NO; Charge for UA Resulting for Rev
[2022-01-09 14:25] LABS: Bilirubin Urine Neg (Negative); Blood Urine Neg (Negative); Glucose Urine UA Norm (Normal); Ketones Urine 1+ (Negative); Leukocyte Esterase Urine Negative (Negative); Nitrate Urine Negative (Negative); Protein Urine Neg (Negative); Urine Appearance Clear (CLEAR); Urine Color Yellow (Yellow); Urobilinogen Urine Norm (Negative); pH Urine 5 (5-7)
[2022-01-09 16:14] LABS: Basophils % 0.7 %; Eosinophils % 0.9 %; Hemoglobin 12.4 g/dL (11.5-15.3); Lymphocytes # 0.7 10^3/uL (0.8-4.8); Mean Corpuscular HGB Conc 32.6 g/dL (30.0-36.0); Mean Corpuscular Hemoglobin 30.2 pg (28.0-34.0); Mean Corpuscular Volume 92.5 fl (81-99); Mean Platelet Volume 13.2 fL (7.4-10.4); Monocytes # 0.4 10^3/uL (0.2-0.9); Neutrophils # 3.26 10^3/uL (1.8-7.7); Neutrophils % 73.2 %; Nucleated Red Blood Cells % 0 %; Platelet Count 139 10^3/cmm (130-400); Red Blood Count 4.11 10^6/uL (4.1-5.3); Red Cell Distribution Width 12.9 % (12.1-15.1); White Blood Count 4.5 10^3/uL (4.0-10.0)
[2022-01-09 16:39] LABS: Alanine Aminotransferase 10 U/L (0-33); Alkaline Phosphatase 90 IU/L (35-105); Anion Gap 14.7 (5-19); Aspartate Amino Transferase 17 U/L (0-32); Blood Urea Nitrogen 13 mg/dL (8-23); Calcium 9.5 mg/dL (8.5-10.5); Carbon Dioxide 25 mmol/L (22-29); Chloride 104 mmol/L (98-107); Globulin 3.4 g/dL (1.3-4.6); Glucose 85 mg/dL (65-115); Lipase 28 U/L (13-60); Osmolality Calculated 289 mOsm/kg (285-295); Potassium 3.7 mmol/L (3.5-5.1); Sodium 140 mmol/L (136-145); Total Bilirubin 0.5 mg/dL (0.15-1.2); Total Protein 7.4 g/dL (6.6-8.7)
[2022-01-09 17:26] VITALS: BP 165/64; PULSE 78; O2SAT 98
--- NOTE | 2022-01-09 17:39 | W.ED.GENADLT ---
HPI - General Adult General: Chief complaint: Abdominal Pain Stated complaint: Abd pain Time Seen by Provider: 01/09/22 17:31 History of Present Illness: Patient is a 76-year-old female with a history of prior renal colic presenting to the emergency room with complaints dull pain and diarrhea x3 days. Patient tells me that she has been having diffuse abdominal pain. Patient is able to tolerate p.o. without any difficulty. Rounds today, patient has been having diarrhea. Denies any melena/hematochezia. Patient denies any prior abdominal surgeries. Patient denies any urinary complaints. Denies any chest pain, shortness of palpitation or lightheadedness. Patient denies any cough, runny nose, fever/chills, generalized weakness, new vaginal discharge, or other focal complaints at this time. Onset:3 days ago Duration:3 days Location:home Severity:moderate Associated symptoms: Deny chest pain, dyspnea, nausea, rash, palpitations or vomiting Review of Systems Const: Denies: fever(s) or chills Eyes: Denies: change in vision ENMT: Denies: mouth pain Card: Denies: chest pain or palpitations Resp: Denies: dyspnea or non-productive cough GI: Reports: abdominal pain and diarrhea; Denies: nausea or vomiting : Denies: dysuria Musc: Denies: extremity pain Skin/Breast: Denies: rash or new lesions Neuro: Denies: weakness in extremities Psych: Reports: other (Normal mood) Lyn[place]/Lymph: Denies: easy bruising PFSH ED PFSH: Surgical History 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 Implants: The [place] total knee system with a size 4 triathlon beaded posterior stabilized femur left, a triathlon titanium tibial component size 3 beaded, a triathlon X3 posterior stabilized tibial bearing insert size 3 X 9 mm and a beaded triathlon titanium asymmetric patella size 32 x 10 mm Social History Smoking and tobacco status: never smoked Alcohol intake: never Physical Exam Const: COMMON NORMALS: alert HENMT: COMMON NORMALS: atraumatic HEAD & SCALP: atraumatic MOUTH: moist mucous membranes not abnormal Eye: COMMON NORMALS: EOMs intact bilaterally and conjunctivae normal CONJUNCTIVA: Yes conjunctivae normal Neck/C-Spine: COMMON NORMALS: full ROM and supple Resp: COMMON NORMALS: normal respiratory effort and clear to auscultation bilaterally AUSCULTATION: clear to auscultation bilaterally Cardio: COMMON NORMALS: regular rate RATE: regular rate GI: COMMON NORMALS: Soft to palpation PALPATION: Yes Soft to palpation OTHER: +mild diffuse abd TTP. NO guarding rebound, guarding, rigidity. No CVA tenderness to percussion. Neg Hopkins/Neg McBurney's point tenderness, no suprabupic tenderness to palpation. Extremity: COMMON NORMALS: full ROM Neuro: SENSORIUM/ORIENTATION: Yes alert MOTOR EXAM: No Abnormal motor strength present and Other motor observations present (no focal motor deficits) Psych: COMMON NORMALS: speech normal SPEECH: Yes normal speech MOOD & AFFECT: Yes euthymic mood Course Vital Signs: Vital signs: Vital Signs Temperature 98.6 F 01/09/22 12:53 Pulse Rate 70 01/09/22 19:02 Respiratory Rate 15 01/09/22 19:02 Blood Pressure 151/93 01/09/22 19:02 Pulse Oximetry 94 01/09/22 19:02 [facility] - General Adult Medical Decision Making 76-year-old female with a history of prior renal colic presenting to the emergency room with complaints of diffuse abdominal pain, diarrhea x3 days. On exam, patient is afebrile, hemodynamically stable. No guarding or rebound tenderness patient has mild diffuse tenderness to palpation. White count 4.5. Rest of lab within normal limit. Patient received GI cocktail with significant improvement in abdominal pain. Patient stated tolerate p.o. without any difficulty. Given age and diffuse abd pain, I have offered CT scan. However patient tells me that she feels very anxious and would not like to go to the CT scan. I offered anxiolytics and sedative however this time patient declined. I have explained the risk of not obtaining CT scan given patient which include not rule out acute intra-abdominal pathology. Patient verbalized understanding that no imaging studies done today. At the present time, patient elects to leave against medical advice. I have told patient that she is free to come back at any point time if she has any worsening abdominal pain, nausea/vomiting fever, or any new concerning complaints. Patient and daughter verbalized understanding of everything discussed today. At 6:14pm, patient electing to leave AMA. Patient counseled regarding risks of leaving including severe morbidity, brain , hypoxia, arrythmia, , chest pain, or any other unwanted consequences of leaving against medical advice today. Patient verbalizes understanding of the risks and still wishes to leave AMA. Signed AMA paperwork. Patient advised that patient is welcome to return at any time. Was instructed that patient may come back if symptoms continue to persist and that emergent adverse conditions have not fully been ruled out. Patient is A&Ox3 and has capacity and is of sound mind to make decisions. Disposition: AMA Lab Data : 01/09/22 15:46 01/09/22 15:46 Laboratory Results WBC 4.5 10^3/uL (4.0-10.0) 01/09/22 15:46 RBC 4.11 10^6/uL (4.1-5.3) 01/09/22 15:46 Hgb 12.4 g/dL (11.5-15.3) 01/09/22 15:46 Hct 38.0 % (37.0-47.0) 01/09/22 15:46 MCV 92.5 fl (81-99) 01/09/22 15:46 MCH 30.2 pg (28.0-34.0) 01/09/22 15:46 MCHC 32.6 g/dL (30.0-36.0) 01/09/22 15:46 RDW 12.9 % (12.1-15.1) 01/09/22 15:46 Plt Count 139 10^3/cmm (130-400) 01/09/22 15:46 MPV 13.2 fL (7.4-10.4) H 01/09/22 15:46 Neut % (Auto) 73.2 % 01/09/22 15:46 Lymph % (Auto) 16.0 % 01/09/22 15:46 [place] % (Auto) 9.0 % 01/09/22 15:46 Eos % (Auto) 0.9 % 01/09/22 15:46 Baso % (Auto) 0.7 % 01/09/22 15:46 Neut # (Auto) 3.26 10^3/uL (1.8-7.7) 01/09/22 15:46 Lymph # (Auto) 0.7 10^3/uL (0.8-4.8) L 01/09/22 15:46 [place] # (Auto) 0.4 10^3/uL (0.2-0.9) 01/09/22 15:46 Eos # (Auto) 0.0 10^3/uL (0.0-0.8) 01/09/22 15:46 Baso # (Auto) 0.0 10^3/uL (0.0-0.1) 01/09/22 15:46 Nucleated RBC % (auto) 0 % 01/09/22 15:46 Nucleated RBCs # 0.0 /100WBC 01/09/22 15:46 Sodium 140 mmol/L (136-145) 01/09/22 15:46 Potassium 3.7 mmol/L (3.5-5.1) 01/09/22 15:46 Chloride 104 mmol/L (98-107) 01/09/22 15:46 Carbon Dioxide 25 mmol/L (22-29) 01/09/22 15:46 Anion Gap 14.7 (5-19) 01/09/22 15:46 BUN 13 mg/dL (8-23) 01/09/22 15:46 Creatinine 0.5 mg/dL (0.5-0.9) 01/09/22 15:46 GFR Calculation Not Reportable 01/09/22 15:46 Glucose 85 mg/dL (65-115) 01/09/22 15:46 Calculated Osmolality 289 mOsm/kg (285-295) 01/09/22 15:46 Calcium 9.5 mg/dL (8.5-10.5) 01/09/22 15:46 Total Bilirubin 0.5 mg/dL (0.15-1.2) 01/09/22 15:46 AST 17 U/L (0-32) 01/09/22 15:46 ALT 10 U/L (0-33) 01/09/22 15:46 Alkaline Phosphatase 90 IU/L (35-105) 01/09/22 15:46 Total Protein 7.4 g/dL (6.6-8.7) 01/09/22 15:46 Albumin 4.0 g/dL (3.5-5.2) 01/09/22 15:46 Globulin 3.4 g/dL (1.3-4.6) 01/09/22 15:46 Lipase 28 U/L (13-60) 01/09/22 15:46 Urine Color Yellow (Yellow) 01/09/22 14:07 Urine Appearance Clear (CLEAR) 01/09/22 14:07 Urine pH 5 (5-7) 01/09/22 14:07 Ur Specific [place] 1.020 (1.005-1.030) 01/09/22 14:07 Urine Protein Neg (Negative) 01/09/22 14:07 Urine Glucose (UA) Norm (Normal) 01/09/22 14:07 Urine Ketones 1+ (Negative) H 01/09/22 14:07 Urine Blood Neg (Negative) 01/09/22 14:07 Urine Nitrate Negative (Negative) 01/09/22 14:07 Urine Bilirubin Neg (Negative) 01/09/22 14:07 Urine Urobilinogen Norm mg/dL (Negative) 01/09/22 14:07 Ur Leukocyte Esterase Negative (Negative) 01/09/22 14:07 Discharge Plan Discharge Patient Disposition: Left Against Medical Advice Clinical Impression: Abdominal pain, Diarrhea Condition: Stable Prescriptions: New acetaminophen 500 mg tablet 500 mg PO Q6H PRN (Reason: pain) 5 Days Qty: 20 0RF Pepcid 20 mg tablet 20 mg PO BID PRN (Reason: abdominal pain) 10 Days Qty: 20 0RF ondansetron 4 mg tablet,disintegrating 4 mg PO TID PRN (Reason: nausea and vomiting) 4 Days Qty: 12 0RF Maalox Advanced 1,000-60 mg tablet,chewable 1 tab PO TID PRN (Reason: abdominal pain) 7 Days Qty: 21 0RF No Action celecoxib 200 mg capsule 200 mg PO DAILY 0RF Label Comments: rx filled 01/02/22 90d/s (not started) buspirone 5 mg tablet 5 mg PO BID PRN (Reason: Anxiety) 0RF Tylenol Arthritis Pain 650 mg Tablet Extended Release 1,300 mg PO Q8H PRN (Reason: Pain) 0RF albuterol sulfate 90 mcg/actuation HFA aerosol inhaler 2 puff INHALATION Q6H PRN (Reason: Shortness Of Breath) 0RF venlafaxine 37.5 mg tablet extended release 24hr 37.5 mg PO QAM 0RF PreserVision AREDS-2 250-90-40-1 mg Capsule 1 tab PO BID 0RF multivitamin Tablet 1 tab PO QAM 0RF Referrals: Lily Townsend APN [Primary Care Provider] - Discharge Diet: Advance as tolerated Discharge Activity: Increase activity as tolerated Patient Instructions: Abdominal Pain (ED) Activity Restrictions/Additional Instructions: Please come back if you have any worsening abdominal pain, fever or chills, nausea or vomiting, diarrhea, blood in the stool, inability hold down liquid or solids, or any new concerning complaints. Coding Level of Care Code ED Screw Machine Setter for Chg Fwd Exam Comprehensive
--- NOTE | 2022-01-09 17:44 | PC.PHAR ---
pt states she takes care of her own medications-pt states she hasnt taken lipitor in 2 months or more ext med history shows last filled 05/04/21 90d/s 10mg daily-pt states she hasnt started the celebrex 200mg daily filled on 01/02/22 90d/s
[2022-01-09] MEDS: lidocaine 2% viscous 15 ML, aluminum-mag hydrox-simethicon 30 ML, sucralfate oral liq 1 GM PO (18:12)
[2022-01-09 18:30] VITALS: BP 151/93; O2SAT 98
[2022-01-09 19:02] VITALS: BP 151/93; PULSE 70; RESP 15; O2SAT 94
== END 2022-01-09 19:00 | disposition left against medical advice (07) ==
PROVIDERS: Emergency Provider Emergency Medicine; PCP Nurse Practitioner
DX: R10.9 Unspecified abdominal pain (principal); R19.7 Diarrhea, unspecified; Z53.29 Procedure and treatment not carried out because of patient's decision for other reasons
CPT/HCPCS: 36415; 80053; 81003; 83690; 85025; 99283

== ENCOUNTER 2022-01-24 10:44 | Observation (INO) | payer MEDICARE, SELFPAY ==
[2022-01-03 09:04] VITALS: BMI 38.0
--- NOTE | 2022-01-03 09:11 | ECG_ITS ---
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 Measurements Intervals Ellis Rate: 77 P: 66 MT: 167 QRS: 36 QRSD: 90 T: 48 QT: 386 QTc: 438 Interpretive Statements SINUS RHYTHM WITH SINUS ARRHYTHMIA Compared to ECG 12/30/2020 12:41:18 No significant changes Electronically Signed On 01-03-2022 17:31:06 CDT by Chalo Whipple M.D. [id number]
[2022-01-03 09:49] LABS: Basophils % 0.9 %; Eosinophils % 0.7 %; Hematocrit 40.1 % (37.0-47.0); Hemoglobin 13.3 g/dL (11.5-15.3); Lymphocytes # 0.8 10^3/uL (0.8-4.8); Lymphocytes % 17.6 %; Mean Corpuscular HGB Conc 33.2 g/dL (30.0-36.0); Mean Corpuscular Hemoglobin 30.4 pg (28.0-34.0); Mean Corpuscular Volume 91.6 fl (81-99); Mean Platelet Volume 12.5 fL (7.4-10.4); Monocytes # 0.4 10^3/uL (0.2-0.9); Monocytes % 10.1 %; Neutrophils # 3.08 10^3/uL (1.8-7.7); Neutrophils % 70.5 %; Nucleated Red Blood Cells % 0 %; Platelet Count 100 10^3/cmm (130-400); Red Blood Count 4.38 10^6/uL (4.1-5.3); Red Cell Distribution Width 13.2 % (12.1-15.1); White Blood Count 4.4 10^3/uL (4.0-10.0)
[2022-01-03 09:57] LABS: Alanine Aminotransferase 11 U/L (0-33); Albumin Level 4.1 g/dL (3.5-5.2); Alkaline Phosphatase 85 IU/L (35-105); Anion Gap 12.6 (5-19); Aspartate Amino Transferase 19 U/L (0-32); Blood Urea Nitrogen 24 mg/dL (8-23); Calcium 9.3 mg/dL (8.5-10.5); Carbon Dioxide 24 mmol/L (22-29); Chloride 106 mmol/L (98-107); Globulin 3.3 g/dL (1.3-4.6); Glucose 89 mg/dL (65-115); Osmolality Calculated 292 mOsm/kg (285-295); Potassium 3.6 mmol/L (3.5-5.1); Sodium 139 mmol/L (136-145); Total Bilirubin 0.5 mg/dL (0.15-1.2); Total Protein 7.4 g/dL (6.6-8.7)
[2022-01-03 10:02] LABS: Add Urine Microscopic? NO; Charge for UA Resulting for Rev
[2022-01-03 10:38] LABS: Bilirubin Urine Neg (Negative); Blood Urine Neg (Negative); Glucose Urine UA Norm (Normal); Ketones Urine Negative (Negative); Nitrate Urine Negative (Negative); Protein Urine Neg (Negative); Urine Appearance Clear (CLEAR); Urine Color Yellow (Yellow); Urobilinogen Urine Norm (Negative); pH Urine 5 (5-7)
[2022-01-03 10:39] LABS: Leukocyte Esterase Urine Negative (Negative)
--- NOTE | 2022-01-03 13:44 | P.ANESASSM_ITS ---
Pre-Anesthetic Assessment Height/Weight: Height 1.52 m Weight 88.451 kg Preop Diagnosis: Osteoarthritis Right Knee Operation Date: 01/10/22 07:00 Proposed Procedures p Total Knee Arthroplasty Right 00682/m17.10(Right) - Gilda Monroe MD Familial anesthetic complications: none Was Beta Tommy taken within 24 hours: N/A Was Clonidine taken within 24 hours: N/A Social No alcohol and No tobacco Exam alert, oriented x 3, clear to auscultation bilaterally and regular rate & rhythm Airway Submandibular: within normal limits Cervical ROM: Other (Limited extension ) Mallampati: Class II Dentition: false Pulmonary Exertional Dyspnea 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 CV/HEM None reported METS = 4 None reported Hepatic None reported GI None reported Metabolic None reported Musc/skel Osteoarthritis/DJD Neuropsych None reported Anesthetic Plan ASA status: 2 Anesthesia: Anesthesia Evaluation, General and Regional (specify below) (Adductor canal block for post op pain control ) Other: We discussed risk and benefits of general vs spinal anesthesia including DVT risk, infection, paralysis/catastrophic nerve injury, back bruising/pain, PDPH, conversion to general in case of spinal, PONV, sore throat (sometimes severe), corneal abrasion, positioning and peripheral nerve injuries, life threatening allergic reaction, post operative ICU admission requiring prolonged intubation, stroke, heart attack, , post operative delirium and/or post operative cognitive decline, and rare incidences of recall (under general anesthesia). Patient prefers general w/ adductor canal block for post op pain control. Risk of > 500 ml blood loss (7ml/kg in children): No Medications/Allergies Home Medications Medication Instructions Recorded Confirmed Last Taken Type venlafaxine 37.5 mg tablet 37.5 mg PO DAILY 10/20/20 01/03/22 01/09/21 History buspirone 10 mg tablet 10 mg PO BID PRN 12/21/21 01/03/22 Unknown History multivitamin 1 tab PO DAILY 01/03/22 01/03/22 Unknown History vit A 1000 unit-C 300 mg-E 100 1 tab PO BID 01/03/22 01/03/22 Unknown History [id number] 2 [id number] tablet Allergies Allergy/AdvReac Type Severity Reaction Status Date / Time No Known Allergies Allergy Verified 12/21/21 08:31 [facility] Anesthesia Surgical History 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 Implants: The [place] total knee system with a size 4 triathlon beaded posterior stabilized femur left, a triathlon titanium tibial component size 3 beaded, a triathlon X3 posterior stabilized tibial bearing insert size 3 X 9 mm and a beaded triathlon titanium asymmetric patella size 32 x 10 mm Social History Smoking and tobacco status: never smoked Alcohol intake: never Data Anesthesia : 01/03/22 09:28 01/03/22 09:28 Short CBC 01/03/22 Range/Units 09:28 WBC 4.4 (4.0-10.0) 10^3/uL Hgb 13.3 (11.5-15.3) g/dL Hct 40.1 (37.0-47.0) % MCV 91.6 (81-99) fl Plt Count 100 L (130-400) 10^3/cmm Neut % (Auto) 70.5 % Neut # (Auto) 3.08 (1.8-7.7) 10^3/uL BMP 01/03/22 09:28 Sodium 139 Potassium 3.6 Chloride 106 Carbon Dioxide 24 BUN 24 H Creatinine 0.6 Glucose 89 Calcium 9.3 Liver Function 01/03/22 Range/Units 09:28 Total Bilirubin 0.5 (0.15-1.2) mg/dL AST 19 (0-32) U/L ALT 11 (0-33) U/L Alkaline Phosphatase 85 (35-105) IU/L Albumin 4.1 (3.5-5.2) g/dL Urine 01/03/22 Range/Units 09:53 Urine Color Yellow (Yellow) Urine Appearance Clear (CLEAR) Urine pH 5 (5-7) Ur Specific [place] 1.020 (1.005-1.030) Urine Protein Neg (Negative) Urine Glucose (UA) Norm (Normal) Urine Ketones Negative (Negative) Urine Nitrate Negative (Negative) Urine Bilirubin Neg (Negative) Ur Leukocyte Esterase Negative (Negative) Cardiac Studies: No Data to Display
[2022-01-24] VITALS (20 sets, daily range): BP systolic 104–176; BP diastolic 60–110; PULSE 72–89; RESP 14–18; TEMP 36.1–37.2; O2SAT 90–99
[2022-01-24] MEDS: acetaminophen 1,000 MG/100 ML PIGGYBACK 400 MG IV ×3 (06:33→22:49)
[2022-01-24] MEDS: sodium chloride 0.9% 1,000 ML 30 ML IV (06:34)
[2022-01-24] MEDS: CELEcoxib 200 mg Capsule 400 MG PO (06:34)
--- NOTE | 2022-01-24 07:01 | PM.HP ---
Providers/Chief Complaint Admitting Physician: Gilda Monroe MD Primary Care Provider: Lily Townsend APN Chief Complaint: right osteoarthritis History of Present Illness Terri Carter is a 76 year old female who presents today for total knee arthroplasty.? She feels that current nonoperative management is not giving her quality of life.? She is doing well with her opposite left total knee replacement.? Patient states that she has had pain to the knee for years. Patient states that the majority of her pain is to the anterior knee. Patient states that prolonged activity increases the pain. Patient states the knee affects her daily activities such as walking. Review of Systems Const: Denies: fever(s) or chills Card: Denies: chest pain or dyspnea on exertion Resp: Denies: dyspnea, productive cough or wheezing GI: Denies: abdominal pain, nausea or vomiting : Denies: difficulty voiding Musc: Reports: joint pain, joint swelling and limited range of motion Skin/Breast: Denies: changes in skin color or dry skin Neuro: Denies: numbness in extremities or weakness in extremities Psych: Denies: anxiety Lyndon/Lymph: Denies: easy bruising or easy bleeding Medications/Allergies Home Medications Medication Instructions Recorded Confirmed Last Taken Type multivitamin 1 tab PO QAM 01/03/22 01/24/22 01/23/22 History acetaminophen 650 mg 1,300 mg PO Q8H PRN 01/09/22 01/24/22 Unknown History tablet,extended release (Tylenol Arthritis Pain) albuterol sulfate 90 mcg/actuation 2 puff INHALATION Q6H PRN 01/09/22 01/24/22 01/17/22 History aerosol inhaler buspirone 5 mg tablet 5 mg PO BID PRN 01/09/22 01/24/22 01/09/22 08:00 History celecoxib 200 mg capsule 200 mg PO DAILY 01/09/22 01/24/22 01/23/22 History venlafaxine 37.5 mg 37.5 mg PO QAM 01/09/22 01/24/22 01/23/22 History tablet,extended release 24 hr vit C 250 mg-vit E 90 mg-zinc 40 1 tab PO BID 01/09/22 01/24/22 01/23/22 History mg-copper 1 [id number] capsule (PreserVision AREDS-2) Allergies Allergy/AdvReac Type Severity Reaction Status Date / Time No Known Allergies Allergy Verified 01/09/22 17:46 PFSH Acute PFSH: Surgical History 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 Implants: The Ai total knee system with a size 4 triathlon beaded posterior stabilized femur left, a triathlon titanium tibial component size 3 beaded, a triathlon X3 posterior stabilized tibial bearing insert size 3 X 9 mm and a beaded triathlon titanium asymmetric patella size 32 x 10 mm Social History Smoking and tobacco status: never smoked Alcohol intake: never Vitals/I&O/Wt Last Vital Signs Temp 98.9 F 01/24/22 06:14 Pulse 84 01/24/22 06:14 Resp 18 01/24/22 06:14 BP 156/75 01/24/22 06:14 Pulse Ox 97 01/24/22 06:14 Physical Exam Const: COMMON NORMALS: no acute distress, average body habitus, patient oriented x3 and alert GENERAL APPEARANCE: cooperative and comfortable ORIENTATION/CONSCIOUSNESS: Yes awake HENMT: COMMON NORMALS: normocephalic and atraumatic HEAD & SCALP: normocephalic and atraumatic Eye: GENERAL EYE: appearance normal, both eyes and all related structures Chest: COMMONS NORMALS: normal inspection of the chest Resp: COMMON NORMALS: normal respiratory effort and clear to auscultation bilaterally EFFORT & INSPECTION: Yes able to speak in complete sentences and Yes symmetric chest movement Cardio: COMMON NORMALS: regular rate, regular rhythm, S1 normal heart sound present and S2 normal heart sound present; negative for No murmurs present (Cardio) (Grade 2 systolic ejection murmur) Extremity: RIGHT LOWER EXTREMITY: Yes knee joint Right knee: Yes inspection (Skin is healthy and intact), Yes palpation (Tender about both joint lines), Yes ROM (3 to 85 degrees), Yes neurovascular exam (Intact distally, 2+ pulses, sensation intact) and Yes special tests (Varus is partially correctable) Neuro: COMMON NORMALS: patient oriented x3 SENSORIUM/ORIENTATION: Yes alert Psych: COMMON NORMALS: mental status grossly normal APPEARANCE: Yes grossly normal ATTITUDE: Yes calm and Yes engaged ATTENTION/CONCENTRATION: Yes attention grossly intact Skin: COMMON NORMALS: no rashes or lesions noted GENERAL SKIN EXAM: no rashes or lesions noted Urinary Catheter Management: Messer: Cath Placed During This Visit: no Data : 01/03/22 09:28 01/03/22 09:28 Xray Ortho: My impression: X-ray series obtained 11/21/21 includes bilateral AP weightbearing films of the knees as well as isolated lateral and sunrise of the patient's left knee.? Imaging studies demonstrate that the left knee is in good position and alignment.? There is no evidence of hardware failure or loosening.? The opposite right knee on standing films demonstrates complete obliteration of medial joint space with a varus deformity.? Further imaging studies will be obtained at a subsequent time for discussion of total knee arthroplasty.? The lateral demonstrates excellent fit of the prosthetic components, and the sunrise view demonstrates patellas well located within the trochlear groove with no evidence of subluxation or dislocation. A&P Assessment and plan (1) Primary osteoarthritis of right knee: This is an established 76 year old female patient presenting today for right total knee arthroplasty. Patient states that she has had pain to the knee for years. Patient states that the majority of her pain is to the anterior knee. Patient states that prolonged activity increases the pain. Patient states the knee affects her daily activities such as walking.?X-rays were reviewed in detail with the patient previously. Upon physical examination, the patient's range of motion is decreased. Surgical intervention is discussed with patient today. Patient's heart and lungs are assessed today. Patient has a systolic ejection murmur upon auscultation. Patient's lungs are clear.? All risks and benefits of surgery are discussed with patient in detail.? Patient will follow up in clinic 2 weeks post surgery.?Patient states she understands and agrees with the plan of care and will contact the clinic with further questions or concerns. Status: Acute Attestations Medical Necessity Statement*: Patient will require overnight stay for postoperative rehabilitation and pain management. Coding Level of Care Code Acute Clinical Research Scientist for [facility] Fwd Exam Comprehensive Diagnoses Primary osteoarthritis of right knee M17.11
[2022-01-24] MEDS: vancomycin 1,000 MG SDV 1000 MG XX (08:00)
[2022-01-24] MEDS: ceFAZolin 1,000 mg SDV 2000 MG IRRIGATION (08:01)
--- NOTE | 2022-01-24 08:02 | P.ANESUD_ITS ---
Pre-Anesthetic Update Pre-Anesthetic Assessment: Date of Surgery/Procedure: 01/24/22 Preop Allyson gnosis: Primary osteoarthritis left knee with flexion contracture Proposed Procedure: Operation Date: 01/24/22 07:00 Proposed Procedures p Total Knee Arthroplasty Right 65741/m17.10(Right) - Gilda Monroe MD Any changes to Pre-Anesthetic Assessment?: No Last Intake: Intake Last Liquid Date 01/23/22 Last Liquid Time 18:30 Last Solid Date 01/23/22 Last Solid Time 18:30 Vitals: Temperature 98.9 F 01/24/22 06:14 Temperature Source Temporal Artery S can 01/24/22 06:14 Pulse Rate 84 01/24/22 06:14 Pulse Rhythm 01/24/22 06:14 Pulse Strength 3+ Normal 01/24/22 06:14 Respiratory Rate 18 01/24/22 06:14 Blood Pressure 156/75 01/24/22 06:14 Blood Pressure Argelia n 102 01/24/22 06:14 Pulse Oximetry 97 01/24/22 06:14 Oxygen Delivery Me thod 01/24/22 06:14 Exam: Pre-Anes Outpt Exam: alert, oriented x 3, clear to auscultation bilaterally and regular rate & rhythm Cardiac Studies: No Data to Display
--- NOTE | 2022-01-24 08:02 | ANES.PROC ---
Anesthesia Procedures Procedure/Date: 01/24/22 Nerve Block ^: Nerve Block 1: Main Anesthesia: spinal anesthesia block Time Out Performed: Yes Consent: requested by attending/covering physician, from patient, risks and benefits reviewed and patient agrees to proceed Nerve block location: adductor canal (right) Anesthesia monitors applied: pulse oximetry, EKG, BP cuff and oxygen Nerve block position: supine Anesthetic Used: ropivicaine 0.5% Amount of anesthesia used (mL): 20 Ultrasound used to: recognize landmarks Nerve Stimulator Used?: No Interscalene/Femoral BLK: 4 stimuplex 21 g needle used for position and inplane approach Injection: neg aspiration of heme Patient Tolerated Procedure: well Complications: none
--- NOTE | 2022-01-24 10:14 | XR_ITS ---
WS: [id number] Right knee, AP and lateral views, 01/24/2022 Clinical Data: Status post total knee arthroplasty Comparison: AP both knees, right knee, 12/21/2021. Findings: The right knee arthroplasty is in good position. There is air in the joint space from the recent surg les. There are anterior surgical ute in the subcutaneous tissue. XR/XR knee RT 1-2V [id number] Impression: Right knee arthroplasty.
--- NOTE | 2022-01-24 10:31 | PM.OP ---
Operative Report Date of procedure: January 24, 2022 Pre-op diagnosis: Severe degenerative osteoarthritis of the right knee Post-op diagnosis: Severe degenerative osteoarthritis of the right knee Post-op findings: Severe degenerative osteoarthritis of the right knee with large osteophytes Procedure done: Right total knee arthroplasty Implants: The Ai total knee system with a size 4 triathlon beaded posterior stabilized femur right, a triathlon titanium tibial component size 3 beaded, a triathlon X3 posterior stabilized tibial bearing insert size 3 X 11 mm and a beaded triathlon titanium asymmetric patella size 32 x 10 mm Specimens removed/disposition: Bone, disposed of Pathology: none sent Surgeon: Gilda Monroe Board[employer]attery Operator[facility] Anesthesia: MAC (With spinal, ASA 2, with adductor canal block) Estimated blood loss (mL): 25 Tourniquet time (min): 100 (At 250 mmHg) IV fluids (mL): 900 Urine output (mL): 500 Brief History: Terri Carter is a 76 year old female who presents today for total knee arthroplasty.? She feels that current nonoperative management is not giving her quality of life.? She is doing well with her opposite left total knee replacement.? Patient states that she has had pain to the knee for years. Patient states that the majority of her pain is to the anterior knee. Patient states that prolonged activity increases the pain. Patient states the knee affects her daily activities such as walking. Procedure: The patient was brought to the operating theater, and after undergoing adequate spinal anesthesia supplemented with adductor canal block and MAC, ASA 2, the right lower extremity was prepped with Dura-Prep and draped in usual fashion following placement of a tourniquet high on the leg. The leg was then draped free. Following prepping and draping, the leg was exsanguinated, and the tourniquet was elevated to 250 mmHg for a total tourniquet time of 100 minutes.? Prior to elevation of the tourniquet, but following exposure of the site of surgery, a surgical pause was performed. At the time of the surgical pause, we confirmed the site and side of surgery. Additionally, we confirmed the appropriate and timely administration of preoperative antibiotics, Ancef 2 g and Transexemic acid 1 g.? Additional Transexemic acid was given at the end of the case, 1 g.? The availability of equipment was confirmed, and the patient's identity was verbalized as well. Following the surgical pause, an incision was made centering over the patella continuing proximally and distally as necessary to allow access to the knee joint. Dissection continued through skin and soft tissues using a scalpel. Hemostasis was obtained using electrocautery. The skin incision was followed by a median parapatellar arthrotomy. The leg was extended and the patella was everted. Following this, the leg was returned to flexed position.? The distal femur was exposed, and a drill hole was made in this for placement of the distal femoral jig. The distal femoral jig was set at 5? of valgus. The distal femoral cutting block was then placed in appropriate position, and an jessie wing was used to confirm an appropriate amount of distal femur would be resected.? The distal femoral resection was accomplished with 8 mm of bone being resected distally.? After the distal femoral resection was accomplished, the femur was measured and it measured a size 4.? Medial lateral dimension also measured a size 4.? A size 4 femoral cutting block was placed in position, and we were then able to accomplish the anterior, posterior and chamfer cuts. This jig was then removed, and the notch guide was placed in position. With the notch guide in appropriate position, the notch was excised including resection of the anterior and posterior cruciate ligaments. This notch was to allow for the posterior stabilized femoral component. At this point, the femur was prepared and attention was directed to the proximal tibia.? The posterior knee retractor was placed along with medial and lateral retractors. Further resection of the menisci was accomplished as we had better visualization. A complete meniscectomy was performed both medially and laterally with care being taken to protect the popliteus. Retractors were then placed so that the proximal tibia was well visualized. A drill hole was then made in the tibia for placement of the intramedullary guide. This guide was placed so that approximately 2 mm of bone would be resected from the deficient medial tibial plateau. The intramedullary guide was utilized supplemented with an extramedullary guide to assure appropriate alignment for the proximal tibial resection. The proximal tibial jig was then evaluated, pinned in position, and the proximal tibial resection was accomplished without difficulty. The jig was removed, and the proximal tibia was measured. It measured a size 3. We then attempted a trial reduction with a size 3 by 11 mm.? Osteophytes were also removed from the tibia, and a medial release was accomplished.? The femoral component was placed in position for the trial reduction, and the knee was placed through range of motion.? With this, there was appropriate patellar tracking. Extension was noted to be full as well.? With this we had excellent varus valgus alignment.? The knee was stable to varus valgus stress as well.? Therefore, this was the chosen component.? There was full extension and flexion without lift off and the rotation of the tibia was marked.? Alignment was checked from the hip to the ankle, and this was noted to be appropriate as well. Attention was then directed to the patella. The patella was measured with a caliper.? We resected sufficient patella to leave approximately 14 mm of patella remaining.? Measurements of the patella then indicated that a size asymmetric 32 mm x 10 mm was the appropriate patellar size. We then placed the jig to drill for the 3 pegs of the press-fit patella, and these drill holes were made without incident. A trial patella was then placed, and the knee was placed through range of motion. The patella was noted to track nicely without evidence of subluxation.? The femur was prepared for a press-fit femur by drilling 2 holes for the femoral pegs.? All trial components were subsequently removed. The tibial tray was then pinned into position, and we broached the tibia for the stem of the tibial component.? Subsequently, 4 drill holes were made for placement of the press-fit tibia.? This was accomplished without difficulty. Care was taken to assure appropriate rotation of the tibia as well as appropriate position on the proximal tibia. The tibial tray was completely seated on the proximal tibia. Following broaching, the tibial guide was removed, and all surfaces were copiously irrigated. The surfaces were then dried and a bone plug was placed into the distal femur.? Exparel was also subsequently injected. The Tritanium tibia was impacted into position.? The beaded femur was then impacted into position in a cementless fashion. The tibial insert was placed. The patella was pressed into position with a patellar clamp.? The knee was then copiously irrigated with betadine and saline and suctioned dry. Attention was then directed to closure. Closure was accomplished with 0 Vicryl in the fascial tissues.? Following this, a 2-0 Monocryl was used in the subcutaneous tissues, and the skin was closed with skin ute.? Care was taken to assure an excellent subcutaneous as well as skin closure.? A sterile dressing was then placed consisting of Dermabond Prineo, Telfa, OpSite, Tubigrip, sterile soft roll over the foot, and an Carroll wrap. The patient was returned the Recovery Room in a satisfactory condition. X-rays were obtained and reviewed there.? The patient will be discharged to the floor for postoperative rehabilitation and pain management. Related Problem List Diagnoses (1) Primary osteoarthritis of right knee:
[2022-01-24] MEDS: oxyCODONE 5 mg IR Tab/Cap PO ×2 (11:28→15:28)
[2022-01-24] MEDS: chlorhexidine gluconate 0.12% Btl 473 mL 30 ML MUCOUS MEM ×3 (12:48→21:06)
--- NOTE | 2022-01-24 14:00 | ANE.PACU2 ---
Inpatient post-anesthesia follow up: Airway intact: Yes Vital signs: Temperature 97.9 F Pulse Rate 79 Respiratory Rate 16 Blood Pressure 176/82 Pulse Oximetry 95 Oxygen Delivery Me thod Room Air Oxygen Flow Rate 6 Fraction of Inspir ed Oxygen Hydration adequate: Yes Nausea and vomiting: No Pain level: 2 Mental status: Baseline
[2022-01-24] MEDS: calcium carbonate 500 mg Chew Tablet 1000 MG PO (17:25)
[2022-01-24] MEDS: iron polysaccharide complex 150 mg Capsule PO (17:25)
[2022-01-24] MEDS: sennosides-docusate Tablet 2 TAB PO (17:25)
[2022-01-25] VITALS (9 sets, daily range): BP systolic 100–135; BP diastolic 59–77; PULSE 68–89; RESP 15–20; TEMP 36.4–36.7; O2SAT 92–96
[2022-01-25 01:56] LABS: Basophils % 0.1 %; Hematocrit 28.5 % (37.0-47.0); Hemoglobin 9.3 g/dL (11.5-15.3); Lymphocytes # 0.5 10^3/uL (0.8-4.8); Mean Corpuscular HGB Conc 32.6 g/dL (30.0-36.0); Mean Corpuscular Volume 91.9 fl (81-99); Monocytes # 0.6 10^3/uL (0.2-0.9); Neutrophils # 5.84 10^3/uL (1.8-7.7); Neutrophils % 84.6 %; Nucleated Red Blood Cells % 0 %; Platelet Count 68 10^3/cmm (130-400); Red Cell Distribution Width 12.9 % (12.1-15.1); White Blood Count 6.9 10^3/uL (4.0-10.0)
[2022-01-25 02:21] LABS: Anion Gap 10.2 (5-19); Blood Urea Nitrogen 22 mg/dL (8-23); Carbon Dioxide 26 mmol/L (22-29); Chloride 107 mmol/L (98-107); Glucose 182 mg/dL (65-115); Osmolality Calculated 296 mOsm/kg (285-295); Potassium 4.2 mmol/L (3.5-5.1); Sodium 139 mmol/L (136-145)
[2022-01-25 02:33] LABS: Slide Review Slide Review Perform
[2022-01-25] MEDS: venlafaxine ER (24HR) 37.5 mg Capsule PO (06:14)
[2022-01-25] MEDS: acetaminophen 1,000 MG/100 ML PIGGYBACK 400 MG IV (06:15)
[2022-01-25] MEDS: oxyCODONE 5 mg IR Tab/Cap PO ×3 (06:22→15:23)
[2022-01-25] MEDS: multivitamin therapeutic Tablet 1 TAB PO (08:10)
[2022-01-25] MEDS: sennosides-docusate Tablet 2 TAB PO (08:10)
[2022-01-25] MEDS: CELEcoxib 200 mg Capsule PO (08:10)
[2022-01-25] MEDS: iron polysaccharide complex 150 mg Capsule PO (08:10)
[2022-01-25] MEDS: aspirin 325 mg EC Tablet PO (08:10)
[2022-01-25] MEDS: calcium carbonate 500 mg Chew Tablet 1000 MG PO (08:10)
[2022-01-25] MEDS: chlorhexidine gluconate 0.12% Btl 473 mL 30 ML MUCOUS MEM ×2 (08:10→12:12)
[2022-01-25] MEDS: cholecalciferol (vitamin D3) 1,000 unit Tablet 1000 UNIT PO (08:10)
[2022-01-25] MEDS: lanolin oint 7 gm 1 APPLIC TOPICAL (08:13)
--- NOTE | 2022-01-25 10:50 | PC.CHAP ---
Pastoral Care Encounter/Spiritual Assessment Type of Contact [] Declined commercial trailer truck driver visit [] Patient/Family/Request visit [] Outpatient visit [] Follow-up visit [] Physician referral [] Code/Alert [x] Routine visit [] Staff referral [] Actively dying [] Patient sleeping [] Family support [] [] Out of room [] Palliative care [] [] Receiving care in room [] Pre-surgical visit [] Trauma [] Long length of stay [] ICU visit [] Other: Relational/Emotional Strength [] Patient feels connected with others/family/visitors/staff [] Distress [] Loneliness/isolation [] Abandonment Spirituality of Patient [x] Person of Magnolia [] Attends Sabianist of their Magn[place] [x] Believes in Prayer [] Reads Bible or Anabaptism materials [] There are Spiritual issues to be addressed Laundry Presser Interventions [x] Prayer [x Active listening [] Non-anxious presence [] Spiritual/emotional support [] Crisis/trauma care [] Spiritual counseling [] Bereavement support [] Provided bereavement packet [] Provided Bible/devotional materials [] Provided toy/stuffed animal, coloring book to patient or family member [] Provided Communion [] Anointing/[place] [] Salvation [x] Completed spiritual assessment [] Other: Impact on Illness or Injury [] Angry [] Fearful [] Anxious [] Often cries [] Exhaustion [] Unable to work [] Unable to attend hoahaoism [] Unable to walk/stand [] Unable to read [] Unable to drive [] Unable to eat/drink [] Unable to sleep [] Unable to be with family [] Patient intubated [] Other: Summary Time spent with patient 10 min
[2022-01-25 11:20] LABS: SARS Covid-2 Antigen Negative (Negative)
[2022-01-25] MEDS: acetaminophen 500 mg Tablet 1000 MG PO (14:20)
--- NOTE | 2022-01-25 15:08 | PM.DCS ---
Discharge Providers Date of Admission: 01/24/22 10:44 Date of Discharge: January 25, 2022 Attending Provider at Admission: Gilda Monroe MD Attending Provider at Discharge: Gilda Monroe MD Primary Care Provider: Lily Townsend APN Diagnoses at Discharge Discharge Diagnosis (1) Primary osteoarthritis of right knee: Status: Acute (2) Status post total right knee replacement not using cement: Status: Acute Permanent problem details: Date of procedure: January 24, 2022 Diagnosis: Severe degenerative osteoarthritis of the right knee Procedure done: Right total knee arthroplasty Implants: The Ai total knee system with a size 4 triathlon beaded posterior stabilized femur right, a triathlon titanium tibial component size 3 beaded, a triathlon X3 posterior stabilized tibial bearing insert size 3 X 11 mm and a beaded triathlon titanium asymmetric patella size 32 x 10 mm Reason for Visit Reason for Visit: right osteoarthritis Brief History: Terri Carter is a 76 year old female who presents today for right total knee arthroplasty.? She feels that current nonoperative management is not giving her quality of life.? She is doing well with her opposite left total knee replacement.? Patient states that she has had pain to the knee for years. Patient states that the majority of her pain is to the anterior knee. Patient states that prolonged activity increases the pain. Patient states the knee affects her daily activities such as walking. Hospital Course Hospital Course Patient was admitted for same-day surgery for right total knee arthroplasty. She was brought into the hospital for postoperative rehabilitation and pain management. Previously, she had undergone left total knee arthroplasty, and she felt that she rehab very nicely as she was placed in [facility] following her surgical procedure. She notes that she had stopped to check with [facility] prior to this admission, and they advised her that they did participate with her insurance company. We placed a request for transfer to [facility], but even following [id number] consultation, the patient's insurance denied payment for transfer to [facility]. Case management continues to work with her, but, after evaluating her insurance coverage is, she elected to be discharged to home. She states that she has a young great-grandchild who may be able to help her in her home. She will have home therapies. On the day of discharge, the patient was evaluated. Her dressing was removed except for the OpSite. There was minimal drainage onto this dressing. Calf was soft and nontender with no evidence of DVT. The patient was able to straight leg raise. Physical Exam Const: COMMON NORMALS: no acute distress, average body habitus, patient oriented x3 and alert GENERAL APPEARANCE: cooperative and comfortable ORIENTATION/CONSCIOUSNESS: Yes awake HENMT: COMMON NORMALS: normocephalic and atraumatic HEAD & SCALP: normocephalic and atraumatic Eye: GENERAL EYE: appearance normal, both eyes and all related structures Chest: COMMONS NORMALS: normal inspection of the chest Resp: COMMON NORMALS: normal respiratory effort EFFORT & INSPECTION: Yes able to speak in complete sentences and Yes symmetric chest movement Extremity: RIGHT LOWER EXTREMITY: Yes knee joint (Large outer dressing is removed.) Right knee: Yes inspection (Minimal bloody staining on the OpSite.), Yes palpation (Minimal to no tenderness.), Yes ROM (Able to straight leg raise.) and Yes neurovascular exam (Intact distally with no evidence of DVT) Neuro: COMMON NORMALS: patient oriented x3 SENSORIUM/ORIENTATION: Yes alert Psych: COMMON NORMALS: mental status grossly normal APPEARANCE: Yes grossly normal ATTITUDE: Yes calm and Yes engaged ATTENTION/CONCENTRATION: Yes attention grossly intact Skin: COMMON NORMALS: no rashes or lesions noted GENERAL SKIN EXAM: no rashes or lesions noted Urinary Catheter Management: Messer: Cath Placed During This Visit: yes, but has since been removed by the nurse Reason for Continuing Indwelling Catheter: Decision to DC Catheter Urinary Catheter Date of Insertion: 01/24/22 Urinary Catheter Time of Insertion: 07:30 Date Urinary Catheter Removed: 01/25/22 Time Urinary Catheter Discontinued: 06:44 Discharge Data Studies Completed and Pending Completed Studies During Hospitalization Category Date Time Status XR knee RT 1-2V [id number] Urgent Exams 01/24/22 10:14 Completed Radiology Impressions Knee X-Ray 01/24/22 10:14 Impression: Right knee arthroplasty. Laboratory Results WBC 6.9 10^3/uL (4.0-10.0) 01/25/22 01:24 RBC 3.10 10^6/uL (4.1-5.3) L 01/25/22 01:24 Hgb 9.3 g/dL (11.5-15.3) L 01/25/22 01:24 Hct 28.5 % (37.0-47.0) L 01/25/22 01:24 MCV 91.9 fl (81-99) 01/25/22 01:24 MCH 30.0 pg (28.0-34.0) 01/25/22 01:24 MCHC 32.6 g/dL (30.0-36.0) 01/25/22 01:24 RDW 12.9 % (12.1-15.1) 01/25/22 01:24 Plt Count 68 10^3/cmm (130-400) L 01/25/22 01:24 MPV 14.0 fL (7.4-10.4) H 01/25/22 01:24 Neut % (Auto) 84.6 % 01/25/22 01:24 Lymph % (Auto) 7.0 % 01/25/22 01:24 [place] % (Auto) 8.0 % 01/25/22 01:24 Eos % (Auto) 0.0 % 01/25/22 01:24 Baso % (Auto) 0.1 % 01/25/22 01:24 Neut # (Auto) 5.84 10^3/uL (1.8-7.7) 01/25/22 01:24 Lymph # (Auto) 0.5 10^3/uL (0.8-4.8) L 01/25/22 01:24 [place] # (Auto) 0.6 10^3/uL (0.2-0.9) 01/25/22 01:24 Eos # (Auto) 0.0 10^3/uL (0.0-0.8) 01/25/22 01:24 Baso # (Auto) 0.0 10^3/uL (0.0-0.1) 01/25/22 01:24 Nucleated RBC % (auto) 0 % 01/25/22 01:24 Nucleated RBCs # 0.0 /100WBC 01/25/22 01:24 Sodium 139 mmol/L (136-145) 01/25/22 01:24 Potassium 4.2 mmol/L (3.5-5.1) 01/25/22 01:24 Chloride 107 mmol/L (98-107) 01/25/22 01:24 Carbon Dioxide 26 mmol/L (22-29) 01/25/22 01:24 Anion Gap 10.2 (5-19) 01/25/22 01:24 BUN 22 mg/dL (8-23) 01/25/22 01:24 Creatinine 0.7 mg/dL (0.5-0.9) 01/25/22 01:24 GFR Calculation Not Reportable 01/25/22 01:24 Glucose 182 mg/dL (65-115) H 01/25/22 01:24 Calculated Osmolality 296 mOsm/kg (285-295) H 01/25/22 01:24 Calcium 8.0 mg/dL (8.5-10.5) L 01/25/22 01:24 Total Bilirubin 0.5 mg/dL (0.15-1.2) 01/03/22 09:28 AST 19 U/L (0-32) 01/03/22 09:28 ALT 11 U/L (0-33) 01/03/22 09:28 Alkaline Phosphatase 85 IU/L (35-105) 01/03/22 09:28 Total Protein 7.4 g/dL (6.6-8.7) 01/03/22 09:28 Albumin 4.1 g/dL (3.5-5.2) 01/03/22 09:28 Globulin 3.3 g/dL (1.3-4.6) 01/03/22 09:28 Urine Color Yellow (Yellow) 01/03/22 09:53 Urine Appearance Clear (CLEAR) 01/03/22 09:53 Urine pH 5 (5-7) 01/03/22 09:53 Ur Specific Parrott 1.020 (1.005-1.030) 01/03/22 09:53 Urine Protein Neg (Negative) 01/03/22 09:53 Urine Glucose (UA) Norm (Normal) 01/03/22 09:53 Urine Ketones Negative (Negative) 01/03/22 09:53 Urine Blood Neg (Negative) 01/03/22 09:53 Urine Nitrate Negative (Negative) 01/03/22 09:53 Urine Bilirubin Neg (Negative) 01/03/22 09:53 Urine Urobilinogen Norm mg/dL (Negative) 01/03/22 09:53 Ur Leukocyte Esterase Negative (Negative) 01/03/22 09:53 SARS-CoV-2 Ag (Rapid) Negative (Negative) 01/25/22 10:47 Vitals Last Vital Signs Temp 97.9 F 01/25/22 12:00 Pulse 82 01/25/22 12:00 Resp 16 01/25/22 12:00 BP 135/77 01/25/22 12:00 Pulse Ox 95 01/25/22 12:00 Discharge Plan Discharge Patient Disposition: Home Health Service Condition: Stable Prescriptions: New aspirin 325 mg Tablet,Delayed Release (Dr/Ec) 325 mg PO DAILY 30 Days 0RF oxycodone 5 mg Tablet 5 mg PO Q4H PRN (Reason: Moderate Pain) 7 Days Qty: 30 0RF Continued buspirone 5 mg tablet 5 mg PO BID PRN (Reason: Anxiety) 0RF acetaminophen [Tylenol Arthritis Pain] 650 mg Tablet Extended Release 1,300 mg PO Q8H PRN (Reason: Pain) 0RF albuterol sulfate 90 mcg/actuation HFA aerosol inhaler 2 puff INHALATION Q6H PRN (Reason: Shortness Of Breath) 0RF venlafaxine 37.5 mg tablet extended release 24hr 37.5 mg PO QAM 0RF PreserVision AREDS-2 250-90-40-1 mg Capsule 1 tab PO BID 0RF multivitamin Tablet 1 tab PO QAM 0RF celecoxib 200 mg capsule 200 mg PO DAILY 30 Days Qty: 30 0RF Label Comments: rx filled 01/02/22 90d/s (not started) Discharge Orders: Discharge Order (Routine); Ordered 01/25/22 Ordered By: Gilda Monroe Referrals: [facility] [Outside] Gilda Monroe MD [Physician] - 02/09/22 1:00 pm Discharge Diet: Advance as tolerated and Usual diet Discharge Activity: Increase activity as tolerated, Limit activity as instructed and Use walker/crutches as instructed Patient Instructions: Oxycodone/Acetaminophen (By mouth), Aspirin (By mouth), Opioid Safety, Post Anesthesia Care Activity Restrictions/Additional Instructions: Ice and elevation to right lower extremity. Maintain dressing in place. You may remove the large bulky dressing if present. Discharge Attestations Time Spent in Discharge Care*: greater than 30 min Specific Discharge Activities: educating patient, discussing with case management assistant/social workers/dc planners, documenting/other paperwork (Including peer to peer) and evaluating patient/reviewing data Quality Metrics Clinical Quality Measures [ No reported AMI, CVA or VTE this stay] Coding Level of Care Code Acute [facility] note Diagnoses Primary osteoarthritis of right knee M17.11 Status post total right knee replacement not using cement Z96.651
== END 2022-01-25 16:47 | disposition home health service (06) ==
LOC: MEDSURG 10:46
PROVIDERS: Admitting Provider Specialist; PCP Nurse Practitioner; Visit Provider Specialist
PROC: (CPT 27447; principal; 2022-01-24 07:00)
DX: M17.11 Unilateral primary osteoarthritis, right knee (principal)
CPT/HCPCS: 27447; 36415; 51702; 64447; 73560; 76942; 80048; 80053; 81003; 85025; 87426; 97110; 97116; 97161; 97165; 97530; C1776; C9290; G0378; J0690; J1100; J2250; J2370; J2405; J2704; J2795; J3010; J3370; J3490; J7030

== ENCOUNTER → 2022-02-09 13:10 | Outpatient (BNVA) | payer MEDICARE, SELFPAY | PROVIDERS: PCP Nurse Practitioner Family; Visit Provider Nurse Practitioner Family | DX: Z96.651 Presence of right artificial knee joint (principal) | CPT/HCPCS: 73560; 73565 ==

== ENCOUNTER → 2022-03-08 09:11 | Outpatient (BNVA) | payer MEDICARE, SELFPAY | PROVIDERS: PCP Nurse Practitioner Family; Visit Provider Specialist | DX: Z96.651 Presence of right artificial knee joint (principal); Z96.652 Presence of left artificial knee joint | CPT/HCPCS: 73560; 73565; 99024 ==

== ENCOUNTER → 2022-07-10 10:25 | Outpatient (BNVA) | payer MEDICARE, SELFPAY | PROVIDERS: PCP Nurse Practitioner Family; Visit Provider Specialist | DX: Z96.653 Presence of artificial knee joint, bilateral (principal); M17.0 Bilateral primary osteoarthritis of knee | CPT/HCPCS: 73560; 73565; 99213 ==

== ENCOUNTER 2022-11-09 09:10 | Outpatient (CLI) | payer MEDICARE, SELFPAY ==
--- NOTE | 2022-11-09 09:27 | MM_ITS ---
WS: [id number] BILATERAL SCREENING DIGITAL TOMOSYNTHESIS MAMMOGRAM WITH CAD HISTORY: SCREENING COMPARISON: 07/05/2021 Bilateral CC and MLO views with tomosynthesis and synthetic mammography submitted. Computer aided det ection analyzed. Breast composition: There are scattered areas of fibroglandular density. No suspicious masses, microc alcifications or architectural distortion. Benign asymmetry in the upper-outer quadrant of the RIGHT breast. Mild distortion is similar to the prior study. Benign calcifications. MM/[place] [id number] IMPRESSION: BI-RADS: 2-Benign FOLLOW UP: 1 Year Follow-up
== END 2022-11-09 09:11 | disposition home or self-care (01) ==
LOC: RAD 09:14
PROVIDERS: PCP Nurse Practitioner Family; Visit Provider Nurse Practitioner Family
DX: Z12.31 Encounter for screening mammogram for malignant neoplasm of breast (principal)
CPT/HCPCS: 77063; 77067

== ENCOUNTER 2023-01-23 13:14 | Emergency (ER) | payer MEDICARE, SELFPAY ==
[2023-01-23 13:32] VITALS: BP 175/66; PULSE 106; RESP 16; TEMP 36.9; O2SAT 90
--- NOTE | 2023-01-23 13:43 | CT_ITS ---
WS: [id number] CT THORACIC SPINE HISTORY: fall injury TECHNIQUE: Contiguous 2.5 mm axial images are reviewed to thoracic spine. Images are reformatted in s agittal and coronal planes. All CT scans at [facility] use at least one of these dose optimiz ation techniques: automated exposure control; mA and/or kV adjustment per patient size (includes targ eted exams where dose is matched to clinical indication); or iterative reconstruction. DLP: 1014.80 mGy.cm COMPARISON: 01/04/2017 Moderate increase in thoracic kyphosis. Disc spaces are narrowed throughout. Hypertrophic endplate os teophytes at all levels. Osteopenia. No acute fractures are identified. No significant acute-appearin g disc protrusion narrowing the central canal. No significant central stenosis or compromise of the central canal. Visualized ribs are normal. Lungs are clear. No pulmonary contusion or pneumothorax. CT/CT thoracic spin wo con* [id number] IMPRESSION: 1. No acute thoracic spine fracture. 2. 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
--- NOTE | 2023-01-23 13:44 | W.ED.FALL ---
HPI - Fall General: Chief Complaint: Fall Stated Complaint: FALL WITH BACK PAIN Time Seen by Provider: 01/23/23 13:25 Source: patient Mode of arrival: EMS Limitations: no limitations History of Present Illness: This patient states she was doing some yard work with her daughter earlier today. She was using a small weedeater and stumbled or tripped and wind up falling down and has pain in her upper back. She states she did not pass out and fall or have any palpitations chest pain or any other prodrome prior to her fall. She states that she did not get up until EMS arrived and then with their assistance she got to her feet and was able to bear weight without difficulty. She still complains of pain in her upper back. There was no head trauma, loss of consciousness, neck pain or extremity or other areas of pain. She has some right inguinal pain has been present for approximately a month but that is not a new condition for her. Fall from: standing Fall witnessed: yes, by family Place fall occurred: home Loss of consciousness: None Context: tripped/slipped Location of injury: back Associated symptoms-after fall: Denies chest pain, headache(s), lightheadedness or neck pain Review of Systems Const: Denies: fever(s) or chills Eyes: Denies: change in vision or blurry vision ENMT: Denies: odynophagia, nasal discharge or nasal congestion Card: Denies: chest pain, palpitations, irregular heart rhythm, lightheadedness, syncope or pre-syncope Resp: Denies: dyspnea GI: Denies: nausea or vomiting : Denies: difficulty voiding or dysuria Musc: Reports: back pain; Denies: neck pain, extremity pain or extremity swelling Skin/Breast: Denies: rash, pruritus or new lesions Neuro: Denies: headache(s), numbness in extremities, weakness in extremities, frequent falls, dizziness or seizure-like activity Lyndon/Lymph: Denies: easy bruising or easy bleeding PFSH ED PFSH: Surgical History 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 Implants: The Ai total knee system with a size 4 triathlon beaded posterior stabilized femur left, a triathlon titanium tibial component size 3 beaded, a triathlon X3 posterior stabilized tibial bearing insert size 3 X 9 mm and a beaded triathlon titanium asymmetric patella size 32 x 10 mm Social History Smoking and tobacco status: never smoked Alcohol intake: never Substance/Drug Use: never Physical Exam Narrative: EXAM NARRATIVE: The patient is alert and in no acute distress. She answers questions in a goal-directed fashion and appears to be comfortable. Const: COMMON NORMALS: no acute distress, patient oriented x3 and alert GENERAL APPEARANCE: cooperative NUTRITIONAL APPEARANCE: overweight ORIENTATION/CONSCIOUSNESS: Yes awake HENMT: COMMON NORMALS: normocephalic, atraumatic, Normal nasal mucous membranes and turbinates present, moist oral mucous membranes and oropharynx normal HEAD & SCALP: normocephalic and atraumatic FACE & SINUS: normal facial exam and face symmetric NOSE: Normal nasal mucous membranes and turbinates present Eye: COMMON NORMALS: Equal, round and reactive pupils present, EOMs intact bilaterally and conjunctivae normal CONJUNCTIVA: Yes conjunctivae normal PUPIL: Yes Equal, round and reactive pupils present Neck/C-Spine: CERVICAL SPINE: Yes cervical ROM normal, No Cervical spine tenderness, No step off deformity, No Paracervical muscle tenderness, No Paracervical spasm and No Trapezius muscle tenderness Chest: COMMONS NORMALS: normal inspection of the chest and normal palpation of entire chest wall Resp: COMMON NORMALS: normal respiratory effort, No retractions and clear to auscultation bilaterally AUSCULTATION: clear to auscultation bilaterally Cardio: COMMON NORMALS: regular rate, regular rhythm, No murmurs present (Cardio) and Peripheral pulses 2+ throughout RATE: regular rate RHYTHM: regular rhythm PERIPHERAL PULSES: Peripheral pulses 2+ throughout GI: COMMON NORMALS: Normal to inspection, nondistended, normoactive bowel sounds present and Soft to palpation PALPATION: Yes Soft to palpation : COMMON NORMALS: Yes no CVA tenderness BLADDER/KIDNEY EXAM: Yes no CVA tenderness Back/Pelvis: COMMON NORMALS: no CVA tenderness, thoraco-lumbar ROM normal and straight leg raise negative bilaterally THORACIC SPINE/UPPER BACK: Yes thoracic spinal tenderness (Some tenderness noted in and about the area of the upper thoracic spine.) LUMBAR SPINE/LOWER BACK: Yes normal to inspection, Yes lumbar ROM normal and No lumbar spinal tenderness PELVIS: Yes no pain with anterior-posterior compression and Yes no pain with lateral compression SACROILIAC JOINTS: Yes SI joints normal OTHER: As noted she has some tenderness around the upper thoracic spine extending to perhaps as low as the region of T7-T8. No midline tenderness. No step-offs noted. No ecchymosis, abrasion etc. Extremity: COMMON NORMALS: normal to inspection, full ROM, capillary refill normal, no calf tenderness and no pedal edema Neuro: VANGIE COMA SCALE: document GCS findings Vangie coma scale eye opening: Spontaneous Mccarley coma scale verbal response: Orientated Vangie coma scale motor response: Obey commands Mccarley coma scale total score: 15 COMMON NORMALS: patient oriented x3, moves all extremities, no focal motor deficits and no sensory deficits noted SENSORIUM/ORIENTATION: Yes alert CRANIAL NERVES: Yes CN normal except as noted Psych: COMMON NORMALS: mental status grossly normal Skin: COMMON NORMALS: no rashes or lesions noted, no wounds and turgor normal GENERAL SKIN EXAM: no rashes or lesions noted and turgor normal Course Reevaluation(s): Reevaluation #1: Patient was reevaluated. No new or focal findings on reevaluation. Discussed current findings with both she as well as family who are now present. Discussed expected course and reasons to return. Time: 15:30 Vital Signs: Vital signs: Vital Signs Temperature 98.4 F 01/23/23 13:32 Pulse Rate 90 01/23/23 15:10 Respiratory Rate 16 01/23/23 13:32 Blood Pressure 134/59 01/23/23 15:10 Pulse Oximetry 94 01/23/23 15:10 Oxygen Delivery Me thod Room Air 01/23/23 13:32 MDM - Fall Medical Decision Making This patient made her way to the emergency department via EMS after suffering a ground-level fall at her home. There was no prodrome or other concerns to suggest syncope or etc. prior to this episode. EMS was called to the scene by daughter to determine if there is any significant injury. There was no history of loss of consciousness, head or neck injury. She did have pain to her upper back. It was recommended by EMS that she come to the emergency department. Upon arrival here she was alert. Her cervical spine was nontender and normal range of motion. She had mild to moderate tenderness in the upper thoracic spine without step-off. There is no other axial spine tenderness noted. No other injuries noted. Imaging was obtained which was reassuring without any evidence of compression fracture, other bony injury to the axial thoracic spine. Patient is stable she suffered a ground-level fall without any evidence of syncope or other prodrome to her fall that would not 1 would be concerned about possible arrhythmia hypotension etc. Discussed expected course and return precautions. Lab Data I reviewed the patient's lab results. Radiology Impressions Thoracic Spine CT 01/23/23 13:43 IMPRESSION: 1. No acute thoracic spine fracture. 2. 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 Discharge Plan Discharge Patient Disposition: Home Clinical Impression: Ground-level fall, Back contusion Condition: Stable Prescriptions: No Action buspirone 5 mg tablet 5 mg PO BID PRN (Reason: Anxiety) albuterol sulfate 90 mcg/actuation HFA aerosol inhaler 2 puff INHALATION Q6H PRN (Reason: Shortness Of Breath) venlafaxine 37.5 mg tablet extended release 24hr 37.5 mg PO QAM PreserVision AREDS-2 250-90-40-1 mg Capsule 1 tab PO BID Tylenol Ex Str Rapid Release 500 mg Tablet 1,000 mg PO Q6H PRN (Reason: Pain) Discharge Orders: Discharge ED (Routine); Ordered 01/23/23 Ordered By: Naun De Los Santos Referrals: Sridevi Barton NP [Primary Care Provider] - Discharge Diet: Usual diet Discharge Activity: Increase activity as tolerated Patient Instructions: Opioid Safety, Pain Management Activity Restrictions/Additional Instructions: As we discussed no evidence of any injury or fracture to your bones of your back. The fall is resulted in some soft tissue injury and full recall contused area to your back which will be sore for a few days but should readily and quickly improved. Should you develop persistent or worsening pain or any other concerns at any time you are welcome to return to the emergency department for reevaluation otherwise follow-up with your regular primary care clinic. Coding Level of Care Code ED Legal Office Administrator for Dominique Alvarado
[2023-01-23] MEDS: LORazepam 0.5 mg Tablet PO (13:53)
[2023-01-23 14:23] VITALS: BP 145/68; PULSE 93; O2SAT 97
[2023-01-23 15:10] VITALS: BP 134/59; PULSE 90; O2SAT 94
== END 2023-01-23 16:06 | disposition home or self-care (01) ==
PROVIDERS: Emergency Provider Emergency Medicine; PCP Nurse Practitioner Family
DX: S20.229A Contusion of unspecified back wall of thorax, initial encounter (principal); W18.30XA Fall on same level, unspecified, initial encounter; Y93.H2 Activity, gardening and landscaping; Y92.096 Garden or yard of other non-institutional residence as the place of occurrence of the external cause
CPT/HCPCS: 72128; 99284

== ENCOUNTER 2023-11-30 08:38 | Outpatient (CLI) | payer MEDICARE, SELFPAY ==
--- NOTE | 2023-11-30 08:42 | CT_ITS ---
WS: [id number] CT HEAD TECHNIQUE: Noncontrast CT of the head obtained from the skullbase to the vertex. CLINICAL INFORMATION: OTHER AMNESIA COMPARISON: 2017 DLP: 868.[address] scans at [facility] use at least one of these dose optimization techniques: automated e xposure control; mA and/or kV adjustment per patient size (includes targeted exams where dose is matc hed to clinical indication); or iterative reconstruction. FINDINGS: No evidence of intracranial hemorrhage or mass effect. Ventricular system and basal cisterns are orellana nt. Mild small vessel changes with mild parenchymal volume loss. Parenchymal volume loss progressed s nash 1117. No extra-axial fluid collections. No evidence of mass or mass effect. Mild intracranial va scular calcification. Paranasal sinuses and mastoid air cells are well aerated. .Normal visualized soft tissues. IMPRESSION: 1. No evidence of intracranial hemorrhage or mass effect. 2. Mild small vessel changes. Mild parenchymal volume loss progressed since 2017. 3. Mild intracranial vascular calcification. 4. No acute intracranial findings.
--- NOTE | 2023-11-30 08:48 | MM_ITS ---
WS: [id number] BILATERAL SCREENING DIGITAL TOMOSYNTHESIS MAMMOGRAM WITH CAD HISTORY: SCREENING COMPARISON: 11/09/2022, 11/02/2020 Bilateral CC and MLO views with tomosynthesis and synthetic mammography submitted. Computer aided det ection analyzed. Breast composition: There are scattered areas of fibroglandular density. No suspicious masses, microc alcifications or architectural distortion. Stable bilateral breast masses and calcifications. No new mass. No distortion. IMPRESSION: MM/[place] [id number] BI-RADS: 2-Benign FOLLOW UP: 1 Year Follow-up
== END 2023-11-30 08:39 | disposition home or self-care (01) ==
LOC: RAD 08:39
PROVIDERS: PCP Nurse Practitioner Family; Visit Provider Nurse Practitioner Family
DX: Z12.31 Encounter for screening mammogram for malignant neoplasm of breast (principal); R92.323 Mammographic fibroglandular density, bilateral breasts; F03.90 Unspecified dementia, unspecified severity, without behavioral disturbance, psychotic disturbance, mood disturbance, and anxiety
CPT/HCPCS: 70450; 77063; 77067

== ENCOUNTER 2024-08-13 11:34 | Emergency (ER) | payer MEDICARE, SELFPAY ==
[2024-08-13 11:35] VITALS: BP 190/91; PULSE 103; RESP 18; TEMP 36.3; O2SAT 97
--- NOTE | 2024-08-13 11:38 | ECG_ITS ---
[facility] Test Date: 2024-08-13 Pat Name: Terri Carter Department: Room: Gender: Female Jailer Chief: : 1945 Requested By: Ceci Leon Order Number: [id number] Edith MD: Osman Starks M.D. Measurements Intervals Whitney Rate: 97 P: 61 CO: 182 QRS: -2 QRSD: 98 T: 48 QT: 377 QTc: 479 Interpretive Statements SINUS RHYTHM PROBABLE INFERIOR MYOCARDIAL INFARCTION , PROBABLY OLD [35 ms Q WAVE IN II/aVF] Compared to ECG 01/03/2022 09:18:52 Myocardial infarct finding now present Sinus arrhythmia no longer present Electronically Signed On 08-13-2024 21:40:49 NUTRITIONIST by Osman Starks M.D. [email or web address]
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
[2024-08-13 12:07] LABS: Bilirubin Urine Negative (Negative); Blood Urine Negative (Negative); Glucose Urine UA Negative (Normal); Ketones Urine Trace (Negative); Leukocyte Esterase Urine Negative (Negative); Nitrate Urine Negative (Negative); Protein Urine Trace (Negative); Specific Gravity, Urine 1.025 (1.005-1.030); Urine Appearance Cloudy (CLEAR); Urine Color Dark Yellow (Yellow)
[2024-08-13 12:09] LABS: Add Urine Microscopic? YES; Bacteria Urine None Seen /hpf; Hyaline Casts Urine 4.95 /lpf; RBC Urine 0-2 /hpf (0-2); Squamous Epithelial Cell Urine 0-5 /hpf (0-5); WBC Urine 0-5 /hpf (0-5)
[2024-08-13 12:33] LABS: Add Urine Culture? No
[2024-08-13 13:18] LABS: Basophils % 0.8 %; Eosinophils % 1.1 %; Hematocrit 40.7 % (36-47); Lymphocytes # 0.8 10^3/uL (0.8-4.8); Lymphocytes % 23.8 %; Mean Corpuscular HGB Conc 32.9 g/dL (30-55); Mean Corpuscular Hemoglobin 29.6 pg (27-33); Mean Corpuscular Volume 89.8 fl (85-98); Monocytes # 0.3 10^3/uL (0.2-0.9); Monocytes % 9.6 %; Neutrophils # 2.27 10^3/uL (1.8-7.7); Neutrophils % 64.4 %; Nucleated Red Blood Cells % 0 %; Platelet Count 103 10^3/cmm (157-399); Red Blood Count 4.53 10^6/uL (3.85-5.65); Red Cell Distribution Width 13.2 % (12.1-15.1); White Blood Count 3.53 10^3/uL (3.29-11.43)
[2024-08-13 13:30] LABS: Slide Review Slide Review Perform
[2024-08-13 13:36] LABS: Anion Gap 13.3 (5-19); Blood Urea Nitrogen 13 mg/dL (8-23); Calcium 9.8 mg/dL (8.5-10.5); Carbon Dioxide 25 mmol/L (22-29); Chloride 107 mmol/L (98-107); Glucose 93 mg/dL (65-115); Osmolality Calculated 294 mOsm/kg (285-295); Potassium 3.3 mmol/L (3.5-5.1); Sodium 142 mmol/L (136-145)
[2024-08-13 13:51] VITALS: BP 169/88; PULSE 86; O2SAT 100
== END 2024-08-13 13:54 | disposition home or self-care (01) ==
PROVIDERS: Emergency Provider Emergency Medicine; PCP Nurse Practitioner Family
DX: F03.90 Unspecified dementia, unspecified severity, without behavioral disturbance, psychotic disturbance, mood disturbance, and anxiety (principal)
CPT/HCPCS: 36415; 80048; 81001; 85025; 93005; 99284

== ENCOUNTER 2025-01-20 14:31 | Oncology outpatient (recurring) (ONCR) | payer MEDICARE, SELFPAY ==
[2025-01-20 15:25] LABS: Basophils % 0.8 %; Eosinophils # 0.1 10^3/uL (0.0-0.8); Eosinophils % 1.4 %; Hematocrit 39.7 % (36-47); Lymphocytes # 0.9 10^3/uL (0.8-4.8); Lymphocytes % 23.4 %; Mean Corpuscular HGB Conc 32.7 g/dL (30-55); Mean Corpuscular Volume 91.5 fl (85-98); Mean Platelet Volume 13.4 fL (7.4-10.4); Monocytes # 0.4 10^3/uL (0.2-0.9); Monocytes % 10.9 %; Neutrophils # 2.33 10^3/uL (1.8-7.7); Neutrophils % 63.2 %; Nucleated Red Blood Cells % 0 %; Platelet Count 89 10^3/cmm (157-399); Red Blood Count 4.34 10^6/uL (3.85-5.65); Red Cell Distribution Width 13.6 % (12.1-15.1); White Blood Count 3.68 10^3/uL (3.29-11.43)
[2025-01-20 16:06] LABS: Alanine Aminotransferase 11 U/L (0-33); Albumin Level 4.3 g/dL (3.5-5.2); Alkaline Phosphatase 106 U/L (35-105); Anion Gap 16.5 (5-19); Aspartate Amino Transferase 21 U/L (0-32); Blood Urea Nitrogen 26 mg/dL (8-23); Calcium 9.5 mg/dL (8.5-10.5); Carbon Dioxide 23 mmol/L (22-29); Chloride 108 mmol/L (98-107); Creatinine Clr Calc Pharmacy 57.6704; Ferritin 133 ng/mL (15-150); Globulin 3.3 g/dL (1.3-4.6); Glucose 80 mg/dL (65-115); Osmolality Calculated 302 mOsm/kg (285-295); Potassium 3.5 mmol/L (3.5-5.1); Sodium 144 mmol/L (136-145); Thyroid Stimulating Hormone 0.93 uIU/mL (0.27-4.20); Total Bilirubin 0.6 mg/dL (0.15-1.2); Total Protein 7.6 g/dL (6.6-8.7); Vitamin B12 459 pg/mL (232-1245)
[2025-01-20 16:13] LABS: Folate Level 12.5 ng/mL (4.8-37.3)
[2025-01-20 16:14] LABS: Hepatitis A Antibody IgM Non-Reactive (Nonreactive); Hepatitis B Core AB, Total Non-Reactive (Nonreactive); Hepatitis B Surface AB < 3.5 (11.5-1000); Hepatitis B Surface Antigen Non-Reactive (Nonreactive); Hepatitis C Virus Antibody Non-Reactive (Nonreactive)
[2025-01-22 18:19] LABS: ALPHA 1 GLOBULIN 0.3 g/dL (0.2-0.3); ALPHA 2 GLOBULIN 0.9 g/dL (0.5-0.9); BETA 1 GLOBULIN 0.4 g/dL (0.4-0.6); BETA 2 GLOBULIN 0.4 g/dL (0.2-0.5)
[2025-01-23 22:35] LABS: Immunofixation Serum Normal pattern.
== END 2025-01-24 23:59 | disposition home or self-care (01) ==
PROVIDERS: PCP Nurse Practitioner Family; Visit Provider Internal Medicine Medical Oncology
DX: D69.6 Thrombocytopenia, unspecified (principal); D72.819 Decreased white blood cell count, unspecified; R03.0 Elevated blood-pressure reading, without diagnosis of hypertension; M25.569 Pain in unspecified knee; R53.83 Other fatigue
CPT/HCPCS: 36415; 80053; 82607; 82728; 82746; 84155; 84165; 84443; 85025; 86334; 86705; 86706; 86709; 86803; 87340; 99204

== ENCOUNTER 2025-02-16 11:15 | Emergency (ER) | payer MEDICARE, SELFPAY ==
[2025-02-16 11:19] VITALS: BP 148/71; PULSE 106; RESP 16; TEMP 36.4; O2SAT 95; BMI 41.5
[2025-02-16 11:37] VITALS: BP 148/71; PULSE 106; TEMP 36.4; O2SAT 95
--- NOTE | 2025-02-16 11:38 | ED.C_ITS ---
HPI - Psych General: Chief Complaint: Psychiatric Symptoms Stated Complaint: Depression Time Seen by Provider: 02/16/25 11:17 Source: patient and EMS Mode of arrival: EMS Limitations: no limitations History of Present Illness: 79-year-old female who states that she h as been feeling depressed over the last few weeks states that today she did have an episode where she started crying and just felt very upset she is on the phone with her friend who called EMS patient states she feels calmer now states she does still feel depressed she denies having any suicidality or homicidality. No previous psych admissions. Associated symptoms: Reports depression Related Data Home Medications ?Medication ?Instructions ?Recorded ?Confirmed albuterol sulfate 90 mcg/actuation 2 puff inhalation Q 6H PRN 01/09/22 02/10/25 aerosol inhaler Shortness Of Breath buspirone 5 mg tablet 5 mg PO BID PRN Anxiety 12/2502/10/25 acetaminophen 500 mg tablet 1,000 mg PO Q6H PRN Pain 0 01/23/23 02/10/25 atorvastatin 20 mg tablet mg PO 01/20/25 02/10/25 cetirizine 10 mg tablet mg PO 01/20/25 02/10/25 memantine 14 mg capsule mg PO 01/20/25 02/10/25 sprinkle,extended release 24hr venlafaxine 75 mg capsule,extended mg PO 01/20/2501/25 release 24 hr Allergies Allergy/AdvReac Type Severity Reaction Status Date / Time No Known Allergies Allergy Verified 02/10/25 08:51 Review of Systems Const: Denies: fever(s), chills, body aches or change in appetite ENMT: Denies: throat pain or dental pain Card: Denies: chest pain Resp: Denies: dyspnea GI: Denies: abdominal pain, nausea, vomiting or diarrhea Musc: Denies: neck pain or back pain Skin/Breast: Denies: rash Neuro: Denies: headache(s) Psych: Reports: depression [facility] ED PFSH: Surgical History 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 Implants: The [employer] total knee system with a size 4 triathlon beaded posterior stabilized femur left, a triathlon titanium tibial component size 3 beaded, a triathlon X3 posterior stabilized tibial bearing insert size 3 X 9 mm and a beaded triathlon titanium asymmetric patella size 32 x 10 mm Social History Smoking and tobacco/nicotine status: former use of tobacco/nicotine Alcohol intake: never Substance/Drug Use: never Physical Exam Const: COMMON NORMALS: no acute distress, patient oriented x3 and healthy appearing HENMT: COMMON NORMALS: normocephalic and atraumatic HEAD & SCALP: normocephalic and atraumatic Neck/C-Spine: COMMON NORMALS: full ROM and supple Chest: COMMONS NORMALS: normal inspection of the chest Resp: COMMON NORMALS: normal respiratory effort, No retractions, No use of accessory muscles and clear to auscultation bilaterally AUSCULTATION: clear to auscultation bilaterally Cardio: COMMON NORMALS: regular rate, regular rhythm and No murmurs present (Cardio) RATE: regular rate RHYTHM: regular rhythm GI: COMMON NORMALS: Normal to inspection, nondistended, normoactive bowel sounds present, Soft to palpation, non-tender and no masses PALPATION: Yes Soft to palpation Extremity: COMMON NORMALS: normal to inspection and full ROM Neuro: COMMON NORMALS: patient oriented x3, moves all extremities and no focal motor deficits Psych: COMMON NORMALS: mental status grossly normal, Normal thought process present and cooperative THOUGHT PROCESS: Normal thought process present Skin: COMMON NORMALS: no rashes or lesions noted and no wounds GENERAL SKIN EXAM: no rashes or lesions noted Course Vital Signs: Vital signs: Vital Signs Temperature 97.5 F L 02/16/25 11:37 Pulse Rate 106 H 02/16/25 11:37 Respiratory Rate 16 02/16/25 11:19 Blood Pressure 148/71 02/16/25 11:37 Pulse Oximetry 95 02/16/25 11:37 Oxygen Delivery Me thod Room Air 02/16/25 11:37 MDM - Psych Medical Decision Making Patient presents here with depression she feels much improved she has had no suicidal or homicidal issues evaluated by psychiatry here she is stable for discharge she is followed her PCP return if worsening Medical Records I reviewed the patient's medical records. No radiology studies performed this visit Discharge Plan Discharge Patient Disposition: Home Clinical Impression: Depression Condition: Stable Prescriptions: No Action venlafaxine 75 mg capsule,extended release 24hr PO atorvastatin 20 mg tablet PO cetirizine 10 mg tablet PO memantine 14 mg capsule,sprinkle,ER 24hr PO buspirone 5 mg tablet 5 mg PO BID PRN (Reason: Anxiety) albuterol sulfate 90 mcg/actuation HFA aerosol inhaler 2 puff INHALATION Q6H PRN (Reason: Shortness Of Breath) Tylenol Ex Str Rapid Release 500 mg Tablet 1,000 mg PO Q6H PRN (Reason: Pain) Discharge Orders: Discharge ED (Routine); Ordered 02/16/25 Ordered By: Ceci Leon Referrals: Sridevi Barton MINE MOTOR ENGINEER [Primary Care Provider, Unknown] - 4-7 days Discharge Diet: Advance as tolerated Discharge Activity: Resume usual activity Patient Instructions: Depression (ED) Print Language: Colombian Coding Level of Care Code ED Chart Collector for Dominique Alvarado
== END 2025-02-16 16:19 | disposition home or self-care (01) ==
PROVIDERS: Emergency Provider Emergency Medicine; PCP Nurse Practitioner Family
DX: F32.A Depression, unspecified (principal); Z87.891 Personal history of nicotine dependence
CPT/HCPCS: 99283

== ENCOUNTER 2025-02-23 10:15 | Oncology outpatient (recurring) (ONCR) | payer MEDICARE, SELFPAY ==
[2025-02-10 08:37] LABS: Reticulocyte % 0.8 % (0.5-2.0)
[2025-02-10 08:38] LABS: Basophils # 0.1 10^3/uL (0.0-0.1); Basophils % 1.4 %; Eosinophils # 0.1 10^3/uL (0.0-0.8); Eosinophils % 1.7 %; Hematocrit 40.5 % (36-47); Lymphocytes # 0.8 10^3/uL (0.8-4.8); Lymphocytes % 22.3 %; Mean Corpuscular HGB Conc 32.6 g/dL (30-55); Mean Corpuscular Hemoglobin 29.5 pg (27-33); Mean Corpuscular Volume 90.4 fl (85-98); Monocytes # 0.3 10^3/uL (0.2-0.9); Monocytes % 9.2 %; Neutrophils # 2.34 10^3/uL (1.8-7.7); Neutrophils % 65.4 %; Nucleated Red Blood Cells % 0 %; Platelet Count 108 10^3/cmm (157-399); Red Blood Count 4.48 10^6/uL (3.85-5.65); Red Cell Distribution Width 13.2 % (12.1-15.1); White Blood Count 3.58 10^3/uL (3.29-11.43)
[2025-02-10 09:03] LABS: Alanine Aminotransferase 10 U/L (0-33); Albumin Level 4.1 g/dL (3.5-5.2); Alkaline Phosphatase 94 U/L (35-105); Anion Gap 13.8 (5-19); Aspartate Amino Transferase 20 U/L (0-32); Blood Urea Nitrogen 14 mg/dL (8-23); Calcium 9.5 mg/dL (8.5-10.5); Carbon Dioxide 26 mmol/L (22-29); Chloride 105 mmol/L (98-107); Globulin 3.4 g/dL (1.3-4.6); Glucose 107 mg/dL (65-115); Lactate Dehydrogenase 169 U/L (135-214); Osmolality Calculated 293 mOsm/kg (285-295); Potassium 3.8 mmol/L (3.5-5.1); Sodium 141 mmol/L (136-145); Thyroid Stimulating Hormone 1.42 uIU/mL (0.27-4.20); Total Protein 7.5 g/dL (6.6-8.7)
[2025-02-10 11:29] LABS: Total Bilirubin 0.5 mg/dL (0.15-1.2)
== END 2025-02-23 23:59 | disposition home or self-care (01) ==
PROVIDERS: Nurse Practitioner; PCP Nurse Practitioner Family; Visit Provider Internal Medicine Medical Oncology
DX: Z53.9 Procedure and treatment not carried out, unspecified reason (principal)
CPT/HCPCS: 36415; 80053; 83615; 84443; 85025; 85045; 99214